=== PATIENT | male | born 1945 | race Caucasian/White ===

== ENCOUNTER 2019-05-10 21:28 | Inpatient (IN) | payer MEDICARE, OTHER ==
[~2019-05-10] VITALS: Ht 185.4 cm; Wt 80.4 kg
--- NOTE | 2019-05-10 21:34 | PHYS DOC ---
Past History Past Medical History: Arthritis, Dementia, Hypertension Past Medical History Hx. Narcolepsy Past Surgical History: Knee Replacement Past Surgical History Lt knee - replacement Adult General Chief Complaint Chief Complaint: ".. . I don't know.... I just so weak... and this Rt knee... it hurts... so bad.. I can't get around... just so weak everywhere.. [facility]... they say.. .".. " My Lt knee hurts too... but I had surgery ... on it..."... " What the fuck... a person to do... 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 for my father office... I had to show. ..him how to get it in the office... He's 5 years.. younger... by one day... where in the fuck am I ..." HPI HPI Patient is a 73 year old male who presents with above hx and complaints of generalized weakness with right lower ext. and knee pain . Patient denies any injury. Patient has history of chronic bilateral knee pain with previous knee replacement on left. Patient complains of generalized weakness to the point he is unable to ambulate. Patient does report some shortness of breath. Patient is somewhat poor historian. Periodic episodes of confusion. Patient normally follows at [facility]. Pt. was diverted to [place] because [facility] was not accepting patients. . We'll attempt to get records from [facility]. Pt. give s Hx. of HTN, Narcolepsy. Pt. lives by himself. Reportedly per paramedics his living conditions are deplorable. Pt. normally walks with walker, but currently states he had been to weak all day walk .. Unable to get up and get anything to eat or drink since the AM. Pt. advised he has not taken his normal meds since he has not be able to followup at [facility]. Pt. states he gets all of his care at [facility]. Pt. 's power of securities attorney is brother Hesham Davis- [phone]. Pt. states he does have a friend locally Manish Sterling that checks on him occasionally. Pt. states he did get a flu vaccination this season. No recent travel out side of [place] area. No specific ill contacts. Review of Systems Review of Systems Constitutional: Denies fever or chills [] Eyes: Denies change in visual acuity, redness, or eye pain [] HENT: Denies nasal congestion or sore throat [] Respiratory: Reports of some shortness of breath [] Cardiovascular: No additional information not addressed in HPI [] GI: Denies abdominal pain, nausea, vomiting, bloody stools or diarrhea [] : Denies dysuria or hematuria [] Musculoskeletal: Complaints of Rt knee joint pain and Lt knee pain. Pt. has complaints of generalize muscle weakness. Integument: Denies rash or skin lesions [] Neurologic: Denies headache, focal weakness or sensory changes . Complaints of generalized weakness. Endocrine: Denies polyuria or polydipsia [] All other systems were reviewed and found to be within normal limits, except as documented in this note. Family History Family History Family history noncontributory Current Medications Current Medications See nursing for home medications Allergies Allergies No known drug allergies Physical Exam Physical Exam Constitutional: Moderate acute distress, ill in appearance. [] HENT: Normocephalic, atraumatic, bilateral external ears normal, oropharynx dry, no oral exudates, nose normal. Luna- scraggly Eyes: PERRLA, EOMI, conjunctiva normal, no discharge. [] Neck: Normal range of motion, no tenderness, supple, no stridor. [] Cardiovascular: Tachycardia cardia Heart rate regular rhythm, aortic murmur , PMI to Lt. ] Lungs & Thorax: Bilateral breath sounds equal at apex with scattered wheezes auscultation []. Crackles Lt lung base. Clavicle on Lt. appears to be deformed. ? old fx. Abdomen: Bowel sounds normal, soft, no tenderness, no masses, no pulsatile masses. [] Pt. incontinent of stool and urine. Had caked on stool - that appeared from multiple episodes / days. Skin: Warm, dry, no erythema, no rash. Poor turgor. Multiple contusions and abrasions in different stages of healing. Decub sacral. Back: No tenderness, no CVA tenderness. [] Extremities: Right knee tenderness, no cyanosis, no clubbing, moves ext. on request, Arthritic changes. Left knee scar. Can do straight leg lift both legs. Unable to hold legs extended more than a few seconds. Pt. unable to stand because of weakness and Rt. leg pain. Does have some edema and effusion in right knee. Neurologic: Alert and oriented X 2, moves extremities on request, has distal sensory function, no gross focal deficits noted. []Obvious memory issues and at times confused. Rt hand dominate. Psychologic: Affect anxious, judgement some obvious memory changes, episodic moments of confusion, mood varies, at times very talkative. . 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 [] EKG EKG My interpretation EKG shows a sinus tachycardia heart 9 bpm. Does have a left axis deviation and a sixth block. No findings acute STEMI with contralateral changes.[] Radiology/Procedures Radiology/Procedures [address] [address] IMAGING REPORT Signed PATIENT: VERA DAVIS ACCOUNT: [id number] : 1945 LOCATION: ER AGE: 73 SEX: M EXAM STATUS: REG ER ORD. PHYSICIAN: LEANDRA PONCE MD REASON: Short of air, weakness, heart murmur PROCEDURE: PORTABLE CHEST 1V PORTABLE CHEST 1V INDICATION: Dyspnea. COMPARISON STUDY: 01/28/2005. FINDINGS: Lungs: Asymmetric elevation of the left hemidiaphragm. No pulmonary mass or consolidation. The tracheobronchial tree and hilar structures are normal. Pleura: No pleural effusion or pneumothorax. Heart and Mediastinum: The cardiomediastinal silhouette is normal. Atherosclerotic thoracic aorta. IMPRESSION: No consolidation. Electronically signed by: Cade Ferrer MD (05/10/2019 11:25 PM) [id number] DICTATED AND SIGNED BY: CADE FERRER MD DATE: 05/10/19 9548 CC: LEANDRA PONCE MD; PCP,NO ~ [address] [address] IMAGING REPORT Signed PATIENT: VERA DAVIS ACCOUNT: [id number] : 1945 LOCATION: ER AGE: 73 SEX: M EXAM STATUS: REG ER ORD. PHYSICIAN: LEANDRA PONCE MD REASON: Severe right knee pain today with weakness, diffiuclty ambulating PROCEDURE: KNEE RIGHT 4V KNEE RIGHT 4V DATE: 05/10/2019 9:51 PM INDICATION: Severe knee pain COMPARISON: None. FINDINGS/ IMPRESSION: No acute fracture. Severe tricompartmental degenerative changes. Small knee joint effusion. Atherosclerotic vascular calcifications. Electronically signed by: Cade Ferrer MD (05/10/2019 11:14 PM) [id number] DICTATED AND SIGNED BY: CADE FERRER MD DATE: 05/10/191 CC: LEANDRA PONCE MD; PCP,NO ~ [[address] [address] IMAGING REPORT Signed PATIENT: VERA DAVIS ACCOUNT: [id number] : 1945 LOCATION: ER AGE: 73 SEX: M EXAM STATUS: REG ER ORD. PHYSICIAN: LEANDRA PONCE MD REASON: Bilateral upper leg and hip pain today, difficulty ambulating PROCEDURE: FEMUR BILAT FEMUR BILAT DATE: 05/10/2019 10:06 PM INDICATION: Bilateral upper leg pain COMPARISON: None. FINDINGS/ IMPRESSION: There is no evidence of acute fracture. No joint dislocation is noted. Electronically signed by: Cade Ferrer MD (05/10/2019 11:17 PM) [id number] DICTATED AND SIGNED BY: CADE FERRER MD DATE: 05/10/191 CC: LEANDRA PONCE MD; PCP,NO ~ ][address] [address] IMAGING REPORT Signed PATIENT: VERA DAVIS ACCOUNT: [id number] : 1945 LOCATION: ER AGE: 73 SEX: M EXAM STATUS: REG ER ORD. PHYSICIAN: LEANDRA PONCE MD REASON: Severe left knee pain today with weakness, diffiuclty ambulating PROCEDURE: KNEE LEFT 4V KNEE LEFT 4V DATE: 05/10/2019 10:15 PM INDICATION: Severe knee pain COMPARISON: None. FINDINGS/ IMPRESSION: Total knee arthroplasty. Surgical hardware is intact. No periprosthetic lucency. No acute fracture. Electronically signed by: Cade Ferrer MD (05/10/2019 11:13 PM) [id number] DICTATED AND SIGNED BY: CADE FERRER MD DATE: 05/10/19 2313 CC: LEANDRA PONCE MD; PCP,NO ~ Course & Med Decision Making Course & Med Decision Making Pertinent Labs and Imaging studies reviewed. (See chart for details) Admit to Dr. Alicia with Cardiology consult. Social Service consult. Pt. unable to urinate prior to admit. Pt. declined [facility]. Impression: 1. Weakness 2. Rt. Knee Pain 3. Dyspnea 4. Dehydration 5. Elevated D-dimer 0.98 6. Leukocytosis 12.2 7. Mild Elevation Lactic Acid 2.3 8. Dementia (Brother Hesham Davis -power of securities attorney- [place] reportedly has number in his phone. ) 9. Mild elevation CK 338 10. Hx. Narcolepsy 11.Hx. HTN 12.Contusions 13.Sacral Decub. 14.High risk for re-admit, Social Issues [] Dragon Disclaimer Dragon Disclaimer This electronic medical record was generated, in whole or in part, using a voice recognition dictation system. Departure Departure: Disposition: 01 HOME/RESIDENCE PRIOR TO ADM Condition: STABLE Dragon Disclaimer This chart was dictated in whole or in part using Voice Recognition software in a busy, high-work load, and often noisy Emergency Department environment. It may contain unintended and wholly unrecognized errors or omissions. LEANDRA PONCE MD May 10, 2019 21:34
[2019-05-10] MEDS ORDERED: IV RINGERS SOLUTION,LACTATED 1,000 ML IV SCH (21:51)
[2019-05-10] MEDS ORDERED: ACETAMINOPHEN 500 MG TABLET PO ONE (22:15)
[2019-05-10] MEDS ORDERED: MORPHINE SULFATE 10 MG/ML SYRINGE. SQ ONE (22:30)
[2019-05-10 22:41] LABS: BASO # 0.1 x10^3/uL (0.0-0.2); BASO % 1 % (0-3); EOS % 0 % (0-3); HEMATOCRIT 49.2 % (39.0-53.0); HEMOGLOBIN 16.3 g/dL (13.0-17.5); LYMPH % 9 % (24-48); MEAN CORPUSCULAR HEMOGLOBIN 32 pg (25-35); MEAN CORPUSCULAR HGB CONC 33 g/dL (31-37); MEAN CORPUSCULAR VOLUME 97 fL (79-100); MONO # 1.1 x10^3/uL (0.0-1.1); MONO % 9 % (0-9); NEUT % 82 % (31-73); PLATELET COUNT 318 x10^3/uL (140-400); RED CELL DISTRIBUTION WIDTH 13.7 % (11.5-14.5); WHITE BLOOD COUNT 12.2 x10^3/uL (4.0-11.0)
[2019-05-10 22:50] LABS: CREATININE 1.2 mg/dL (0.7-1.3); GFR 59.2; POTASSIUM 4.9 mmol/L (3.5-5.1)
[2019-05-10 23:03] LABS: ALBUMIN 4.3 g/dL (3.4-5.0); DIRECT BILIRUBIN 0.2 mg/dL (0.0-0.2); TOTAL PROTEIN 7.4 g/dL (6.4-8.2)
--- NOTE | 2019-05-10 23:16 | RAD ---
KNEE LEFT 4V DATE: 05/10/2019 10:15 PM INDICATION: Severe knee pain COMPARISON: None. FINDINGS/ IMPRESSION: Total knee arthroplasty. Surgical hardware is intact. No periprosthetic lucency. No acute fracture. Electronically signed by: Derek Ferrer MD (05/10/2019 11:13 PM) [id number]
--- NOTE | 2019-05-10 23:17 | RAD ---
KNEE RIGHT 4V DATE: 05/10/2019 9:51 PM INDICATION: Severe knee pain COMPARISON: None. FINDINGS/ IMPRESSION: No acute fracture. Severe tricompartmental degenerative changes. Small knee joint effusion. Atherosclerotic vascular calcifications. Electronically signed by: Derek Ferrer MD (05/10/2019 11:14 PM) [id number]
--- NOTE | 2019-05-10 23:20 | RAD ---
FEMUR BILAT DATE: 05/10/2019 10:06 PM INDICATION: Bilateral upper leg pain COMPARISON: None. FINDINGS/ IMPRESSION: There is no evidence of acute fracture. No joint dislocation is noted. Electronically signed by: Derek Ferrer MD (05/10/2019 11:17 PM) [id number]
--- NOTE | 2019-05-10 23:27 | RAD ---
PORTABLE CHEST 1V INDICATION: Dyspnea. COMPARISON STUDY: 01/28/2005. FINDINGS: Lungs: Asymmetric elevation of the left hemidiaphragm. No pulmonary mass or consolidation. The tracheobronchial tree and hilar structures are normal. Pleura: No pleural effusion or pneumothorax. Heart and Mediastinum: The cardiomediastinal silhouette is normal. Atherosclerotic thoracic aorta. IMPRESSION: No consolidation. Electronically signed by: Derek Ferrer MD (05/10/2019 11:25 PM) [id number]
[2019-05-10 23:33] LABS: INFLUENZA A PATIENT NEGATIVE (NEGATIVE); INFLUENZA B PATIENT NEGATIVE (NEGATIVE)
[2019-05-11] VITALS (7 sets, daily range): BP systolic 110–161; BP diastolic 53–88
[2019-05-11] MEDS ORDERED: ACETAMINOPHEN 325 MG TABLET PO PRN
[2019-05-11] MEDS ORDERED: ONDANSETRON PF 4 MG/2 ML VIAL. IVP PRN
[2019-05-11] MEDS ORDERED: IV RINGERS SOLUTION,LACTATED 1,000 ML IV ONE
[2019-05-11] MEDS ORDERED: ENOXAPARIN ** NOTE DOSE ** SYRINGE SQ ONE
[2019-05-11] MEDS ORDERED: IV NORMAL SALINE 50ML 50 ML ONE (00:50)
[2019-05-11] MEDS ORDERED: cefTRIAXone SODIUM 1 GM VIAL ONE (00:51)
[2019-05-11] MEDS: IV RINGERS SOLUTION,LACTATED 1,000 ML IV SCH ×4 (01:30→19:50)
[2019-05-11] MEDS ORDERED: IPRATRPIUM/ALBUTEROL 0.5/2.5MG 3 ML NEBU. ONE (05:17)
[2019-05-11] MEDS: IPRATRPIUM/ALBUTEROL 0.5/2.5MG 3 ML NEBU. NEB SCH ×4 (05:20→20:38)
[2019-05-11 06:16] LABS: CALCIUM 8.8 mg/dL (8.5-10.1); CREATININE 1.1 mg/dL (0.7-1.3); GFR 65.4; POTASSIUM 3.7 mmol/L (3.5-5.1)
[2019-05-11 06:17] LABS: BASO # 0.1 x10^3/uL (0.0-0.2); BASO % 1 % (0-3); EOS # 0.1 x10^3/uL (0.0-0.7); EOS % 1 % (0-3); HEMATOCRIT 41.5 % (39.0-53.0); HEMOGLOBIN 14.1 g/dL (13.0-17.5); LYMPH # 1.2 x10^3/uL (1.0-4.8); LYMPH % 12 % (24-48); MEAN CORPUSCULAR HEMOGLOBIN 33 pg (25-35); MEAN CORPUSCULAR HGB CONC 34 g/dL (31-37); MEAN CORPUSCULAR VOLUME 96 fL (79-100); MONO # 1.2 x10^3/uL (0.0-1.1); MONO % 12 % (0-9); NEUT # 7.5 x10^3uL (1.8-7.7); NEUT % 75 % (31-73); PLATELET COUNT 276 x10^3/uL (140-400); RED BLOOD COUNT 4.33 x10^6/uL (4.30-5.70); RED CELL DISTRIBUTION WIDTH 13.4 % (11.5-14.5); WHITE BLOOD COUNT 10.1 x10^3/uL (4.0-11.0)
--- NOTE | 2019-05-11 07:47 | PDOC2 ---
CARDIAC CONSULT DATE OF CONSULT Date Of Consult DATE: 05/11/19 TIME: 07:44 REASON FOR CONSULT Reason for Consult Weakness, dyspnea, murmur REFERRING PHYSICIAN Referring Physician Dr. Berry SOURCE Source: Chart review, Patient HPI History of Present Illness This is a 73 yo male who presented with weakness and right knee pain. This morning, cannot recall what brought him to the hospital. Thinks he came in for some test. C/o all over body pain and migraine. No chest pain, shortness of breath, dizziness, diaphoresis, or LE edema. No recent illness/fevers. Patient lives at home alone and has extensively poor living conditions at home per EMS. Normally receives care at the [facility]. No h/o CHF or knowledge of prior murmur. Does not think he has had an echo previously. PAST MEDICAL HISTORY Cardiovascular: HTN, hyperipidemia Psych: Anxiety, Depression PAST SURGICAL HISTORY Past Surgical History: Total knee replacement (left ) FAMILY HISTORY Family History: Other (no pertinent history) SOCIAL HISTORY Smoke: No ALCOHOL: none Drugs: None Lives: Alone CURRENT MEDICATIONS Current Medications Current Medications Lactated Ringer's 1,000 ml @ 100 mls/hr Q10H IV Last administered on 05/10/19at 23:00; Start 05/10/19 at 21:51; Stop 05/11/19 at 07:50 Acetaminophen (Tylenol) 1,000 mg 1X ONCE PO Last administered on 05/10/19at 23:56; Start 05/10/19 at 22:15; Stop 05/10/19 at 22:25; Status DC Morphine Sulfate (Morphine 10mg Syringe) 10 mg 1X ONCE SQ ; Start 05/10/19 at 22:30; Stop 05/10/19 at 22:31; Status DC Lactated Ringer's 1,000 ml @ 1,000 mls/hr 1X ONCE IV Last administered on 05/11/19at 00:00; Start 05/11/19 at 00:00; Stop 05/11/19 at 00:59; Status DC Enoxaparin Sodium (Lovenox 80mg Syringe) 80 mg 1X ONCE SQ Last administered on 05/11/19at 00:55; Start 05/11/19 at 00:00; Stop 05/11/19 at 00:01; Status DC Ceftriaxone Sodium 1 gm/ Sodium Chloride 50 ml @ 100 mls/hr 1X ONCE IV ; Start 05/11/19 at 00:00; Stop 05/11/19 at 00:29; Status DC Ondansetron HCl (Zofran) 4 mg PRN Q4HRS PRN IVP NAUSEA/VOMITING; Start 05/11/19 at 00:00; Stop 05/11/19 at 23:59 Acetaminophen (Tylenol) 650 mg PRN Q4HRS PRN PO FEVER; Start 05/11/19 at 00:00; Stop 05/11/19 at 23:59 Albuterol/ Ipratropium (Duoneb) 3 ml RTQID NEB Last administered on 05/11/19at 05:20; Start 05/11/19 at 08:00; Stop 05/12/19 at 07:59 Enoxaparin Sodium (Lovenox 80mg Syringe) 80 mg Q12H SQ ; Start 05/11/19 at 12:00 Lactated Ringer's 1,000 ml @ 200 mls/hr Q5H IV Last administered on 05/11/19at 01:30; Start 05/11/19 at 00:30 Aspirin (Children'S Aspirin) 81 mg DAILYWBKFT PO ; Start 05/11/19 at 08:00 Ceftriaxone Sodium 1 gm/ Sodium Chloride 50 ml @ 100 mls/hr 1X ONCE IV Last administered on 05/11/19at 00:56; Start 05/11/19 at 00:30; Stop 05/11/19 at 00:59; Status DC Ceftriaxone Sodium 1 gm/ Sodium Chloride 50 ml @ 100 mls/hr Q24H IV ; Start 05/11/19 at 21:00 Sodium Chloride 50 ml @ As Directed STK-MED ONCE .ROUTE ; Start 05/11/19 at 00:50; Stop 05/11/19 at 00:51; Status DC Ceftriaxone Sodium (Rocephin) 1 gm STK-MED ONCE .ROUTE ; Start 05/11/19 at 00:51; Stop 05/11/19 at 00:51; Status DC Albuterol/ Ipratropium (Duoneb) 3 ml STK-MED ONCE .ROUTE ; Start 05/11/19 at 05:17; Stop 05/11/19 at 05:17; Status DC ALLERGIES Allergies: Coded Allergies: No Known Drug Allergies (Unverified , 05/10/19) ROS Review of Systems 14 point ROS conducted with pertinent positives noted above in hPI PHYSICAL EXAM General: Alert, Other (orient to person and place) HEENT: Atraumatic, Mucous membr. moist/pink Lungs: Clear to auscultation Heart: Regular rate, Other (2/6 systolic murmur ) Abdomen: Soft, No tenderness Extremities: No edema, Normal pulses Skin: No breakdown Neuro: Normal speech, Sensation intact Psych/Mental Status: Mood NL MUSCULOSKELETAL: Osteoarthritic changes both hands VITALS Vital Signs Vital Signs Date Time Temp Pulse Resp B/P (MAP) Pulse Ox O2 Delivery O2 Flow Rate FiO2 05/11/19 06:46 97.7 96 20 133/71 (91) 97 Room Air LABS LABS Laboratory Tests Test 05/10/19 22:15 05/11/19 01:50 05/11/19 05:43 White Blood Count 12.2 x10^3/uL (4.0-11.0) 10.1 x10^3/uL (4.0-11.0) Red Blood Count 5.10 x10^6/uL (4.30-5.70) 4.33 x10^6/uL (4.30-5.70) Hemoglobin 16.3 g/dL (13.0-17.5) 14.1 g/dL (13.0-17.5) Hematocrit 49.2 % (39.0-53.0) 41.5 % (39.0-53.0) Mean Corpuscular Volume 97 fL (79-100) 96 fL (79-100) Mean Corpuscular Hemoglobin 32 pg (25-35) 33 pg (25-35) Mean Corpuscular Hemoglobin Concent 33 g/dL (31-37) 34 g/dL (31-37) Red Cell Distribution Width 13.7 % (11.5-14.5) 13.4 % (11.5-14.5) Platelet Count 318 x10^3/uL (140-400) 276 x10^3/uL (140-400) Neutrophils (%) (Auto) 82 % (31-73) 75 % (31-73) Lymphocytes (%) (Auto) 9 % (24-48) 12 % (24-48) Monocytes (%) (Auto) 9 % (0-9) 12 % (0-9) Eosinophils (%) (Auto) 0 % (0-3) 1 % (0-3) Basophils (%) (Auto) 1 % (0-3) 1 % (0-3) Neutrophils # (Auto) 10.0 x10^3uL (1.8-7.7) 7.5 x10^3uL (1.8-7.7) Lymphocytes # (Auto) 1.0 x10^3/uL (1.0-4.8) 1.2 x10^3/uL (1.0-4.8) Monocytes # (Auto) 1.1 x10^3/uL (0.0-1.1) 1.2 x10^3/uL (0.0-1.1) Eosinophils # (Auto) 0.0 x10^3/uL (0.0-0.7) 0.1 x10^3/uL (0.0-0.7) Basophils # (Auto) 0.1 x10^3/uL (0.0-0.2) 0.1 x10^3/uL (0.0-0.2) Erythrocyte Sedimentation Rate 3 (0-15) Prothrombin Time 10.5 SEC (9.4-11.4) Prothromb Time International Ratio 1.0 (0.9-1.1) Activated Partial Thromboplast Time 27 SEC (23-33) D-Dimer (Carlotta) 0.98 mg/L (0.00-0.50) Sodium Level 142 mmol/L (136-145) 141 mmol/L (136-145) Potassium Level 4.9 mmol/L (3.5-5.1) 3.7 mmol/L (3.5-5.1) Chloride Level 103 mmol/L (98-107) 106 mmol/L (98-107) Carbon Dioxide Level 22 mmol/L (21-32) 24 mmol/L (21-32) Anion Gap 17 (6-14) 11 (6-14) Blood Urea Nitrogen 32 mg/dL (8-26) 32 mg/dL (8-26) Creatinine 1.2 mg/dL (0.7-1.3) 1.1 mg/dL (0.7-1.3) Estimated GFR (Cockcroft-Gault) 59.2 65.4 Glucose Level 109 mg/dL (70-99) 107 mg/dL (70-99) Lactic Acid Level 2.3 mmol/L (0.4-2.0) 1.5 mmol/L (0.4-2.0) Calcium Level 10.0 mg/dL (8.5-10.1) 8.8 mg/dL (8.5-10.1) Magnesium Level 2.0 mg/dL (1.8-2.4) Total Bilirubin 1.0 mg/dL (0.2-1.0) Direct Bilirubin 0.2 mg/dL (0.0-0.2) Aspartate Amino Transf (AST/SGOT) 23 U/L (15-37) Alanine Aminotransferase (ALT/SGPT) 22 U/L (16-63) Alkaline Phosphatase 99 U/L (46-116) Creatine Kinase 338 U/L (39-308) Troponin I Quantitative < 0.017 ng/mL (0-0.055) EL-Tuc-H-Type Natriuretic Peptide 172 pg/mL (0-124) Total Protein 7.4 g/dL (6.4-8.2) Albumin 4.3 g/dL (3.4-5.0) Lipase 72 U/L (73-393) Influenza Type A (Rapid) Negative (NEGATIVE) Influenza Type B (Rapid) Negative (NEGATIVE) ASSESSMENT/PLAN Assessment/Plan 1. Weakness, right knee pain 2. Hypertension; mildly elevated 3. Hyperlipidemia 4. Dyspnea; NT pro BNP mildly elevated, but no clinical evidence of overt HF 5. IBRAHIMA 6. Systolic murmur 7. Self care deficit 8. Encephalopathy vs dementia 9. Substance abuse; UDS positive for methamphetamines Recommendations Lipids Echo to assess LV systolic function, valvular disease Statin Ad lisinopril for BP control Will likely need placement upon discharge Supportive care BRENDA DALTON APRN May 11, 2019 07:47
[2019-05-11] MEDS: ASPIRIN 81 MG TAB.CHEW PO SCH (08:49)
[2019-05-11] MEDS: LACTOBACILLUS RHAMNOSUS GG 1 CAPSULE. PO SCH ×2 (08:49→21:05)
--- NOTE | 2019-05-11 09:26 | RAD ---
Bilateral lower extremity venous duplex study 05/11/2019 Clinical History: Bilateral leg swelling. Technique: Using a combination of real time ultrasound imaging and color-flow and pulse Doppler imaging techniques along with graded compression and augmentation, duplex evaluation of the deep venous system of the both lower extremities was performed. Multiple images were obtained. Findings: There is no sonographic evidence of deep venous thrombosis involving the visualized deep venous structures of either lower extremity. Impression: Negative study. Electronically signed by: Jules Paiz MD (05/11/2019 9:23 AM) [id number]
[2019-05-11] MEDS ORDERED: ATOR20TA58 PO (09:45)
[2019-05-11] MEDS ORDERED: CHOL200078 PO (09:45)
[2019-05-11 11:35] LABS: BARBITURATES NEG (NEG); BENZODIAZEPINES NEG (NEG); CANNABINOIDS NEG (NEG); COCAINE NEG (NEG); METHADONE NEG (NEG); OPIATES NEG (NEG); PHENCYCLIDINE NEG (NEG)
[2019-05-11 11:37] LABS: AMPHETAMINE/METHAMPHETAMINE POS (NEG)
[2019-05-11] MEDS: ENOXAPARIN ** NOTE DOSE ** SYRINGE SQ SCH ×2 (11:44→21:05)
[2019-05-11 12:01] LABS: BILIRUBIN,URINE NEG (NEG); CLARITY,URINE CLEAR; COLOR,URINE AMBER; GLUCOSE,URINE NEG (NEG)
[2019-05-11 12:02] LABS: BACTERIA,URINE FEW /HPF (0-FEW); NITRITE,URINE NEG (NEG); RBC,URINE OCC /HPF (0-2); SQUAMOUS EPITHELIAL CELL,UR FEW /LPF; UROBILINOGEN,URINE 0.2 mg/dL (0.2 mg/dL)
--- NOTE | 2019-05-11 12:17 | CARD ---
MR#: [id number] Date of Study: 05/11/2019 Ordering Physician: BRENDA DALTON, Referring Physician: BRENDA DALTON, Tech: Irina Sanchez PIETRO APPROVED REPORT EXAM: Two-dimensional and M-mode echocardiogram with Doppler and color Doppler. Other Information Quality : Fair Technically limited study due to body habitus. INDICATION Murmur 2D DIMENSIONS RVDd2.6 (2.9-3.5cm)Left Atrium(2D)2.9 (1.6-4.0cm) IVSd0.9 (0.7-1.1cm)Aortic Root(2D)3.7 (2.0-3.7cm) LVDd3.7 (3.9-5.9cm)LVOT Diameter2.3 (1.8-2.4cm) PWd0.8 (0.7-1.1cm)LVDs2.7 (2.5-4.0cm) FS (%) 30.0 %LVEF(%)60.0 (>50%) Aortic Valve AO Peak GR.12.0mmHgLVOT Peak Luis A.8.0cm/s AO Mean GR.8mmHgAVA (VTI)3.50cm2 AI P 1/2 [id number] Tricuspid Valve TR P. [id number] [id number] TR Peak Gr.[id number] LEFT VENTRICLE The left ventricle is normal size. There is normal left ventricular wall thickness. The left ventricu lar systolic function is normal. EF 55%. There is grossly normal wall motion. Not well visalized. Tra nsmitral Doppler flow pattern is Grade I-abnormal relaxation pattern. RIGHT VENTRICLE The right ventricle is normal size. The right ventricular systolic function is normal. ATRIA The left atrium size is normal. The right atrium size is normal. The interatrial septum is intact wit h no evidence for an atrial septal defect or patent foramen ovale as noted on 2-D or Doppler imaging. AORTIC VALVE Not well visualized. Doppler and Color Flow revealed trace to mild aortic regurgitation. There is no significant aortic valvular stenosis. MITRAL VALVE The mitral valve is calcified but opens well. There is no evidence of mitral valve prolapse. There is no mitral valve stenosis. Doppler and Color Flow revealed no mitral valve regurgitation noted. TRICUSPID VALVE Not well visualized. Doppler and Color Flow revealed physiological tricuspid regurgitation. The PA pr essure was estimated at 29 mmHg. There is no tricuspid valve stenosis. PULMONIC VALVE The pulmonic valve is not well visualized. Doppler and Color Flow revealed no pulmonic valvular regur gitation. There is no pulmonic valvular stenosis. GREAT VESSELS The aortic root is normal in size. The ascending aorta is normal in size. The IVC is normal in size a nd collapses >50% with inspiration. PERICARDIAL EFFUSION There is no evidence of significant pericardial effusion. Critical Notification Critical Value: No <Conclusion> The left ventricular systolic function is normal. EF 55%. There is grossly normal wall motion. Not well visalized. Technically very difficult study Signed by : Jalil Lee, Electronically Approved : 05/11/2019 12:17:15
--- NOTE | 2019-05-11 14:36 | PN ---
DATE: SUBJECTIVE: The patient is sitting comfortably in his chair, in no apparent distress. He is definitely more awake, alert, continued to complain of pain in his right knee joint; however, he was able to walk with a walker with standby assist with physical Therapy. PHYSICAL EXAMINATION: GENERAL: When I examined him, he looked well and was clearly in no apparent respiratory distress. No pallor, jaundice, cyanosis or thyromegaly. No jugular venous distention. No limb edema. VITAL SIGNS: His heart rate was 95, blood pressure was 132/66, temperature 97.9, respiratory rate was 20, and oxygen saturation was 96%. HEAD, EYES, EARS, NOSE AND THROAT: Showed he is normocephalic and atraumatic. NECK: Supple. HEART: Showed normal first and second heart sounds. No gallop or murmur. CHEST: Clear to auscultation. No crepitation or rhonchi. ABDOMEN: Distended, soft, nontender. No guarding or rigidity. No organomegaly. All hernial orifice intact. Bowel sounds normal. NEUROLOGIC: He is grossly intact. His intake over the last 24 hours was 1515, no output was recorded. LABORATORY DATA: His lab work this morning showed a serum sodium 141, potassium 3.7, chloride 106, bicarbonate 24, anion gap of 11, BUN 32, creatinine 1.1, estimated GFR was 65 mL per minute. His glucose 107, calcium was 8.8. His white cell count is down to 10,000, hemoglobin 14, hematocrit 41, MCV 96, and platelet count of 276,000 with normal manual differential. ASSESSMENT: In summary, this is a 73-year-old male patient who was admitted with generalized weakness, severe pain in his right knee joint, dehydration, hypertension and osteoarthritis. His D-dimer was high; however, his kidney function is abnormal. His oxygen saturation is actually 96% on room air. I will arrange for him to have a CT angio of the chest to rule out the possibility of pulmonary embolism and meanwhile given his debility and weakness, he probably needs to be in a assisted facility and the patient himself seems to be agreeable and receptive to the idea and our showcase maker is aware of that. ITA MULLINS MD DR: LYNNE/enrique JOB#: [id number] / [id number]
[2019-05-11] MEDS ORDERED: CONTRAST GIVEN MC PRN (14:45)
[2019-05-11] MEDS ORDERED: IOHEXOL 350 MG/ML 100 ML VIAL. IV ONE (14:45)
--- NOTE | 2019-05-11 15:32 | HP ---
ADMIT DATE: HISTORY OF PRESENT ILLNESS: The patient is a 73-year-old male patient who presented to the Emergency Room with a complaint of generalized weakness and pain in his right knee. He apparently denied any injury or fall. He has a history of chronic bilateral knee pain with previous left total knee arthroplasty. He became generally weak to the point he is unable to ambulate. He does report some shortness of breath. The patient is somewhat a poor historian. [facility] He was diverted to [facility] because [facility] was not accepting patients. He apparently lives by himself reportedly but ____ his living conditions were deplorable. He normally walks with a walker, but currently stated he had been too weak to hold it, he was unable to get up and get anything to eat or drink since yesterday morning, has not taken any of his medication. His power of needle polisher is his brother, Hesham Hopper. He stated that he does have a friend locally, his name is Manish ____ that checks on him occasionally; however, the patient denies any travel outside of the [place] area or any specific ill contact. He was evaluated in the Emergency Room and has had a chest x-ray, which showed asymmetric elevation of the left hemidiaphragm with no pulmonary masses or consolidation. The tracheobronchial tree and hilar structures are normal, no pleural effusion or pneumothorax. The cardiomediastinal silhouette is normal, atherosclerotic thoracic aorta. X-ray of the right knee joint showed that the patient has severe tricompartmental degenerative changes, small knee joint effusion, atherosclerotic vascular calcification. He has x-ray of both femurs, which shows no evidence of acute fracture, no joint dislocation is noted and he was admitted with basically generalized weakness, mild leukocytosis. His chemistry was generally unremarkable except perhaps he has dehydration. His D-dimer was slightly elevated at 0.98. Urinalysis was essentially unremarkable. Toxic screen was positive for amphetamine, methamphetamine, but apparently the patient is on Adderall according to him. His influenza A and B were negative. The patient was admitted for rehydration. PAST MEDICAL HISTORY: Significant for hypertension, hyperlipidemia and generalized osteoarthritis. He has also history of anxiety and depression. PAST SURGICAL HISTORY: Significant for left total knee arthroplasty, tonsillectomy and hernia repair. ALLERGIES: He has no known drug allergies. MEDICATIONS: He is currently on following medications: He is on atorvastatin, calcium 20 mg at bedtime and vitamin D 400 International Units twice a day. FAMILY HISTORY: He has 3 brothers and 1 sister, all of them younger. His father , at the age of 90 because of myocardial infarction. Mother also in her 90s. SOCIAL HISTORY: He is , used to have 2 sons. He quit smoking about 12 years ago. He used to smoke half a pack a day, also used to drink alcohol heavily, he quit also. 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 REVIEW OF SYSTEMS: The patient denied any blurring of vision, cataract, glaucoma or macular degeneration. Denied any earache, tinnitus or sensorineural deafness. Denied any nosebleeds, stuffy nose or postnasal drip. Denied any sore throat, sore tongue, toothache, hoarseness of voice or difficulty swallowing. Denied any nausea, vomiting, diarrhea or constipation. Denied any hematemesis, melena or hematochezia. Denied any dysuria, frequency or hematuria. Denied any chest pain, shortness of breath, orthopnea, paroxysmal nocturnal dyspnea. Denied any cough, phlegm or hemoptysis. Denied any dizziness, lightheadedness or vertigo. Did complain of generalized weakness and pain in his right knee joint. PHYSICAL EXAMINATION: GENERAL: On arrival to the Emergency Room, he looked well and was clearly in no apparent respiratory distress, somewhat disheveled, unkempt, but there is no pallor, jaundice, cyanosis or thyromegaly. No jugular venous distention. No limb edema. VITAL SIGNS: His heart rate was 115, blood pressure was 160/109, temperature was 98, respiratory rate was 18 and oxygen saturation was 98%. HEAD, EYES, EARS, NOSE AND THROAT: Normocephalic, atraumatic. NECK: Supple. CARDIAC: Normal first and second heart sounds. No gallop or murmur. CHEST: Clear to auscultation. No crepitation or rhonchi. ABDOMEN: Scaphoid, soft, nontender. NEUROLOGIC: He is awake, alert, responding appropriately. All cranial nerves intact. EXTREMITIES: He moves extremities without difficulty. He has severe pain in his right knee joint. LABORATORY DATA: His lab work on admission showed a white cell count is 12,200, hemoglobin 16, hematocrit 49, MCV 97 and platelet count of 318,000 with normal manual differential. His prothrombin time was 10.5, INR of 1, aPTT was 27. D-dimer was 0.98. Serum sodium 142, potassium 4.9, chloride 103, bicarbonate 22, anion gap of 17, BUN 32, creatinine was 1.2. His estimated GFR was 59 mL per minute. His glucose was 109. Lactic acid was slightly elevated at 2.3, calcium was 10, magnesium was 2. Total bilirubin, AST, ALT, alkaline phosphatase was normal. CK was slightly elevated 338, however beta natriuretic peptide was 172. Total protein was 7.4, albumin was 4.3. Lipase was 72. His prothrombin time was 10.5, INR 1, aPTT was 27. D-dimer was 0.98. Urinalysis showed the urine was amalia clear with a pH of 5.5, specific gravity of 1.030. There was trace of protein. The urine was negative for glucose. There is large amount of ketones, negative for blood, nitrite, bilirubin small amount. The urine was negative for leukocyte esterase, occasional rbc's, 1-4 wbc's, very few bacteria. His influenza A and B were negative. His venous Doppler ultrasound showed no sonographic evidence of deep vein thrombosis involving visualized deep venous structures of either lower extremity. X-ray of his right knee showed no acute fracture with severe tricompartmental degenerative changes, small knee joint effusion, atherosclerotic vascular calcification. X-ray of both femurs and left knee showed no fracture. Has a total knee arthroplasty, surgical hardware is intact. No periprosthetic lucency, no acute fracture. ASSESSMENT AND PLAN: The patient was admitted for rehydration. He was continued on IV fluid, started on IV antibiotic empirically as well as Lovenox 80 mg subcutaneous twice a day, aspirin 81 mg once a day together with albuterol and Atrovent. I will obviously wait for his creatinine to improve before considering CT angio of the chest. ITA MULLINS MD DR: LYNNE/enrique JOB#: [id number] / [id number]
--- NOTE | 2019-05-11 15:48 | RAD ---
CT angiography of the chest 05/11/2019 1:56 PM Indication: Shortness of breath Technique: Multiple contiguous axial images were obtained through the chest after administration of intravenous iodinated contrast. Coronal, sagittal, and 3-D MIP reformations were created. Comparison: None Findings: There is no filling defect within central pulmonary arteries or evidence of acute pulmonary embolism. The heart is mildly enlarged. No pericardial effusion is seen. Coronary calcification noted. No pathologically enlarged mediastinal adenopathy is appreciated. Fluid is seen within the esophagus which is nonspecific and can represent reflux. There is a relative lack of contrast opacification of the right common carotid artery. Vessel occlusion or stenosis is not excluded. Recommend CT angiography or ultrasound for further evaluation. Limited visualization of the upper abdomen is unremarkable. No pathologically enlarged mediastinal lymph nodes are seen the thoracic aorta is minimally ectatic but otherwise normal in course and contour. Elevation of left hemidiaphragm noted. There is no pneumothorax or pleural effusion. Mild intralobular septal thickening is seen which could mild hypervolemia early edema.. No acute infiltrates are seen. Limited visualization of the upper abdomen demonstrates no acute abnormality. No acute osseous abnormalities are appreciated. Impression: 1. No evidence of acute pulmonary embolism 2. Apparent decreased contrast opacification of the right common carotid artery. Conclusion not excluded. Recommend evaluation with ultrasound or CT angiography. 3. Fluid in the esophagus. This can represent reflux. 4. Mild intralobular septal thickening. Mild hypervolemia or interstitial edema is possible CT DOSING PQRS STATEMENT: One or more of the following individualized dose reduction techniques were utilized for this examination: 1. Automated exposure control 2. Adjustment of the mA and/or kV according to patient size 3. Use of iterative reconstruction technique Electronically signed by: Emile Amaya MD (05/11/2019 3:45 PM) [id number]
--- NOTE | 2019-05-11 16:16 | EKG ---
[address] [address] Test Date: 2019-05-10 Test Time: 22:04:09 Pat Name: VERA DAVIS Department: Room: Gender: M [employer]: : [id number] Requested By: LEANDRA PONCE Order Number: [id number] Reading MD: Measurements Intervals [place] Rate: 109 P: 62 OR: 166 QRS: -41 QRSD: 86 T: 68 QT: 340 QTc: 459 Interpretive Statements SINUS TACHYCARDIA ABNORMAL LEFT AXIS DEVIATION LEFT ANTERIOR FASCICULAR BLOCK QRS(T) CONTOUR ABNORMALITY CONSIDER INFERIOR INFARCT ABNORMAL ECG RI6.01 No previous ECG available for comparison
[2019-05-11] MEDS ORDERED: ATORVASTATIN CALCIUM 20 MG TABLET PO SCH (21:00)
[2019-05-12 06:17] VITALS: BP 165/78
[2019-05-12] MEDS: IV RINGERS SOLUTION,LACTATED 1,000 ML IV SCH (06:41)
[2019-05-12] MEDS: LACTOBACILLUS RHAMNOSUS GG 1 CAPSULE. PO SCH (07:56)
[2019-05-12] MEDS: ASPIRIN 81 MG TAB.CHEW PO SCH (07:56)
[2019-05-12] MEDS ORDERED: LISINOPRIL 5 MG TABLET. PO SCH (09:00)
[2019-05-12] MEDS ORDERED: CHOLECALCIFEROL (VITAMIN D3) 1,000 UNIT TABLET PO SCH (09:00)
[2019-05-12 11:27] VITALS: BP 163/90
[2019-05-12] MEDS: ENOXAPARIN ** NOTE DOSE ** SYRINGE SQ SCH (12:23)
[2019-05-12 15:42] VITALS: BP 148/68
[2019-05-12] MEDS ORDERED: LISINOPRIL 5 MG TABLET. PO ONE (16:00)
[2019-05-12 16:32] VITALS: BP 148/68
[2019-05-12 16:41] LABS: CALCIUM 8.5 mg/dL (8.5-10.1); CREATININE 1.1 mg/dL (0.7-1.3); GFR 65.4; POTASSIUM 3.9 mmol/L (3.5-5.1)
--- NOTE | 2019-05-12 17:13 | RAD ---
Examination: DOPPLER CAROTID BILAT History: Diminished flow on CTA of the chest involving the right carotid artery Comparison study: CTA of the chest 05/11/2019. Findings: The common, internal and external carotid arteries were examined by grayscale, color and spectral Doppler ultrasound. Flow in both vertebral arteries was antegrade and normal. The following are the velocities and ratios in the carotid arteries on both sides: RIGHT ICA PV: 12 cm/sec proximally, 24 cm/s mid, 21 cm/s distally RIGHT CCA PV: 37 cm/sec proximally, 72 cm/s mid, 114 cm/s distally RIGHT ICA ED: 11 cm/sec RIGHT IC/CCPV: 0.33 RIGHT VERTEBRAL: antegrade flow LEFT ICA PV: 108 cm/sec proximally, 97 cm/s mid, 108 cm/s distally LEFT CCA PV: 121 cm/sec proximally, 84 cm/s mid, 87 cm/s second distally LEFT ICA ED: 34 cm/sec LEFT IC/CCPV: 1.28 LEFT VERTEBRAL: antegrade flow Large quantity of noncalcified plaque is present within the right common carotid artery, right carotid bulb and right internal carotid artery more distally and is nearly completely occlusive. Notably diminished flow is evident with monophasic waveform. Plaque is also noted to a lesser degree the proximal right common carotid artery. No left common or internal carotid artery hemodynamically stenosis identified although partially calcific plaque is present involving the mid left internal carotid artery. Calcific plaque is noted within the right and left external carotid arteries. 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 Monophasic waveform at notably diminished flow in the right internal carotid artery are evident. No significant left sided hemodynamic stenosis. Results reported to the patient's nurse Adele on 05/12/2019 at 5:10 PM. PQRS Compliance Statement - Stenosis calculations for CT, MR and conventional angiography are based upon measurement of the distal ICA diameter in accordance with the NASCET methodology. Stenosis calculations for carotid ultrasound studies are derived from validated velocity criteria which are known to correlate with the NASCET methodology. Electronically signed by: Julito Funez MD (05/12/2019 5:11 PM) [id number]
--- NOTE | 2019-05-12 18:55 | PN ---
DATE: 05/12/2019 SUBJECTIVE: The patient is resting, slightly propped up in bed, in no apparent distress. He is feeling much better, had a shower and has been working with Physical Therapy. His pain in his right knee is much less and generally doing much better. OBJECTIVE: GENERAL: When I saw him this afternoon, he looked well. No pallor, jaundice, cyanosis or thyromegaly. No jugular venous distension. No limb edema. VITAL SIGNS: His heart rate was 90, blood pressure was 163/90, temperature was 98.3, respiratory rate 20, and oxygen saturation was 99% on room air. HEAD, EYES, EARS, NOSE AND THROAT: Showed normocephalic, atraumatic. NECK: Supple. HEART: Showed normal first and second heart sounds. No gallop or murmur. CHEST: Clear to auscultation. No crepitation or rhonchi. ABDOMEN: Distended, soft, nontender. No guarding or rigidity. No organomegaly. All hernial orifices intact. Bowel sounds normal. NEUROLOGIC: He was awake, alert, responding appropriately. All cranial nerves intact. He moves extremities without difficulty. His intake was 1515, no output was recorded. LABORATORY DATA: Showed a white cell count of 10,000, hemoglobin 14, hematocrit 41, MCV 96, and platelet count of 276,000 with normal manual differential. His chemistry showed a serum sodium of 141, potassium 3.7, chloride 106, bicarbonate 24, anion gap of 11, BUN 32, creatinine 1.1, estimated GFR was 65 mL per minute. His glucose 107, calcium was 8.8, lactic acid was down to 1.5. TSH was normal. Influenza A and B were negative and urinalysis was essentially unremarkable and toxic screen was negative except for amphetamine. Amphetamine, the patient is on Adderall. His blood cultures so far negative. ASSESSMENT: 1. Generalized weakness. 2. Severe pain in his right knee joint, improving. 3. Dehydration, much improved. 4. Hypertension. 5. Osteoarthritis. 6. D-dimer was elevated; however, his CT angio showed no evidence of any pulmonary emboli. The CT scan showed that there is decreased opacification. Contrast was ____ in the right common carotid artery. Conclusion is not excluded. Recommend evaluation with ultrasound or CT angiogram, fluid in the esophagus. This can represent reflux, mild interlobular septal thickening, mild hypervolemia versus interstitial edema as possible. PLAN: To continue with IV Rocephin. Continue with all other medication. I will discontinue his Lovenox and increase his lisinopril to 10 mg and I will also order right carotid Doppler and hopefully [facility] to a [facility] facility. ITA MULLINS MD DR: LYNNE/enrique JOB#: [id number] / [id number]
[2019-05-13] MEDS ORDERED: LISINOPRIL 10 MG TABLET PO SCH (09:00)
[2019-05-13] MEDS ORDERED: ENOXAPARIN 40 MG/0.4 ML SYRINGE. SQ SCH (12:00)
== END 2019-05-12 18:55 | disposition short-term general hospital (02) | DRG 682 ==
LOC: ER 21:28 → 1 SOUTH 23:50
PROVIDERS: ADMIT Internal Medicine; ATTEND Internal Medicine
DX: N17.9 Acute kidney failure, unspecified (principal); G93.41 Metabolic encephalopathy; F41.9 Anxiety disorder, unspecified; F32.9 Major depressive disorder, single episode, unspecified; G89.29 Other chronic pain; I10 Essential (primary) hypertension; F03.90 Unspecified dementia, unspecified severity, without behavioral disturbance, psychotic disturbance, mood disturbance, and anxiety; Z96.652 Presence of left artificial knee joint; E86.0 Dehydration; D72.829 Elevated white blood cell count, unspecified; L89.159 Pressure ulcer of sacral region, unspecified stage; E78.5 Hyperlipidemia, unspecified; M15.9 Polyosteoarthritis, unspecified; F17.210 Nicotine dependence, cigarettes, uncomplicated; F15.10 Other stimulant abuse, uncomplicated; G47.419 Narcolepsy without cataplexy; K21.9 Gastro-esophageal reflux disease without esophagitis; G43.909 Migraine, unspecified, not intractable, without status migrainosus; Z82.49 Family history of ischemic heart disease and other diseases of the circulatory system; Z79.82 Long term (current) use of aspirin
CPT/HCPCS: 36415; 71045; 71275; 73564; 80048; 80076; 80307; 81001; 82550; 83605; 83690; 83735; 83880; 84443; 84484; 85025; 85379; 85610; 85651; 85730; 87040; 87804; 93005; 93306; 93880; 93970; 94640; J0696; J1650; J7120; Q9967; 97110; 97116; 97535

== ENCOUNTER 2019-06-14 12:21 | Inpatient (IN) | payer MEDICARE, OTHER ==
[2019-06-14] VITALS (10 sets, daily range): BP systolic 65–107; BP diastolic 38–64
[~2019-06-14] VITALS: Ht 185.4 cm; Wt 73.0 kg
[~2019-06-14 12:21] MED LIST: ATOR20TA58 PO; CHOL200078 PO
[2019-06-14] MEDS ORDERED: ONDANSETRON PF 4 MG/2 ML VIAL. IVP ONE (12:30)
[2019-06-14] MEDS ORDERED: IV NORMAL SALINE 1,000ML 1,000 ML IV ONE ×3 (12:30→17:00)
[2019-06-14] MEDS ORDERED: IOHEXOL 350 MG/ML 100 ML VIAL. IV ONE (12:45)
[2019-06-14] MEDS ORDERED: CONTRAST GIVEN MC PRN (12:45)
[2019-06-14 12:48] LABS: BASO # 0.1 x10^3/uL (0.0-0.2); BASO % 1 % (0-3); EOS # 0.2 x10^3/uL (0.0-0.7); EOS % 2 % (0-3); HEMOGLOBIN 15.9 g/dL (13.0-17.5); LYMPH % 16 % (24-48); MEAN CORPUSCULAR HEMOGLOBIN 32 pg (25-35); MEAN CORPUSCULAR HGB CONC 33 g/dL (31-37); MEAN CORPUSCULAR VOLUME 97 fL (79-100); MONO # 1.2 x10^3/uL (0.0-1.1); MONO % 10 % (0-9); NEUT # 9.3 x10^3uL (1.8-7.7); NEUT % 73 % (31-73); PLATELET COUNT 245 x10^3/uL (140-400); RED BLOOD COUNT 4.94 x10^6/uL (4.30-5.70); RED CELL DISTRIBUTION WIDTH 13.7 % (11.5-14.5); WHITE BLOOD COUNT 12.7 x10^3/uL (4.0-11.0)
--- NOTE | 2019-06-14 12:49 | PHYS DOC ---
Past History Past Medical History: Arthritis, Dementia, Hypertension Additional Past Medical Histor: heart murmur,narcolepsy Past Medical History Limited secondary to dementia Past Surgical History: Knee Replacement Additional Past Surgical Histo: left knee, vasectomy, hernia repair Past Surgical History Limited secondary to dementia Smoking: Quit Greater Than 1 Year Alcohol Use: None Drug Use: None Social History Limited secondary to dementia General Adult EDM: Chief Complaint: ALTERED MENTAL STATUS HPI: HPI: 73-year-old male presents via EMS from shelter with report of syncopal episode while patient was up in the shower. Nursing staff was present and able to assist patient down to wheelchair prior to him passing out. Denies trauma. Denies fever or chills. Patient currently reports some nausea. It was noted patient with significant episode of diarrhea upon presentation to the ER. It is unclear if patient has been having similar symptoms of nausea/vomiting/diarrhea prior to presentation. EMS reports initially were called to shelter with report that patient had also experienced some "labored breathing ". Patient currently denying any shortness of air. Denies chest pain. EMS reports patient's initial blood pressure was low down to 70s/40s. History of present illness limited secondary to dementia. Review of Systems: Review of Systems: Constitutional: Denies fever or chills; reports weakness Respiratory: Reports "labored breathing " Cardiovascular: Denies chest pain and syncope GI: Reports nausea and diarrhea Neurologic: Reports headache and syncopal episode Review of systems limited secondary to dementia Heart Score: HEART Score for Chest Pain: HEART Score for Chest Pain Response (Comments) Value History Slighlty/Non-Suspicious 0 ECG Normal 0 Age > 65 2 Risk Factors 1 or 2 Risk Factors 1 Troponin < Normal Limit 0 Total 3 Risk Factors: Risk Factors: DM, Current or recent (<one month) smoker, HTN, HLP, family history of CAD, obesity. Risk Scores: Score 0 - 3: 2.5% MACE over next 6 weeks - Discharge Home Score 4 - 6: 20.3% MACE over next 6 weeks - Admit for Clinical Observation Score 7 - 10: 72.7% MACE over next 6 weeks - Early Invasive Strategies Current Medications: Current Meds: Current Medications Medications (Trade) Dose Ordered Sig/Nina Start Time Stop Time Status Last Admin Dose Admin Iohexol (Omnipaque 350 Mg/ml) 100 ml 1X ONCE 06/14/19 12:45 06/14/19 12:46 UNV Ondansetron HCl (Zofran) 4 mg 1X ONCE 06/14/19 12:30 06/14/19 12:32 DC Sodium Chloride 1,000 ml @ 1,000 mls/hr 1X ONCE 06/14/19 12:30 06/14/19 13:29 Allergies: Allergies: Allergies Coded Allergies Type Severity Reaction Last Updated Verified No Known Drug Allergies 05/10/19 No Physical Exam: PE: Constitutional: Well developed elderly male, well nourished, no acute distress, non-toxic appearance HENT: Normocephalic, atraumatic Eyes: PERRL, EOMI, conjunctiva normal, no discharge, no nystagmus Neck: Normal range of motion, no tenderness, supple, no meningeal signs Cardiovascular: Heart rate normal, regular rhythm Lungs & Thorax: Bilateral breath sounds clear to auscultation, no wheezing Abdomen: Soft, no tenderness, no guarding/rebound tenderness/distention Skin: Warm, dry, erythema perineal area consistent with pre-ulceration, no rash Extremities: No tenderness, ROM intact, no edema Neurologic: Alert and oriented X 2, normal motor function, normal sensory function, no focal deficits noted Psychologic: Affect normal, judgment abnormal EKG: EKG: @1234 NSR at 84bpm, NO ST elevation, QRS 82ms, QT/QTc 360/429ms Radiology/Procedures: Radiology/Procedures: PROCEDURE: CT HEAD AND CERVICAL SPINE WO CT Head W/O Contrast: History: Syncope and altered mental status Comparison: none Axial images were obtained without contrast. There is a dense round mass in the anterior horn of the right lateral ventricle that measures 2.8 cm in diameter and results in right sided hydrocephalus with shift of the septum pellucidum from right to left by 1.5 cm. There is moderate diffuse atrophy. There is no extra-axial fluid collections or gross bleed. There is no focal loss of brown-white matter distinction to suggest acute ischemia, i.e. stroke. Impression: Hyperattenuating 2.8 cm mass anteriorly in the right lateral ventricle resulting in right-sided hydrocephalus. This could be a meningioma, subependymoma or lymphoma or metastasis. End impression CT C-Spine without contrast: Clinical History: Technique: Axial helical images of the cervical spine were obtained without contrast, axial coronal and sagittal reconstruction was performed. Findings: There is no loss of vertebral body stature. There is no prevertebral soft tissue swelling. The vertebral bodies are well aligned. The C1-C2 relationship is normal. The visualized osseous structures appear normal. Evaluation of the central canal is limited without contrast. There is multiple posterior disc bulges resulting in flattening of the thecal sac. There does not appear to be gross flattening of the cervical cord. There is moderate narrowing of multiple neuroforamen. Impression: Marked degenerative changes. No acute findings. Clinical correlation suggested. See CT head without contrast. End impression PQRS Compliance Statement: One or more of the following individualized dose reduction techniques were utilized for this examination: 1. Automated exposure control 2. Adjustment of the mA and/or kV according to patient size 3. Use of iterative reconstruction technique Electronically signed by: Clif Manzo III, MD (06/14/2019 2:23 PM) [id number] PROCEDURE: CT ANGIOGRAPHY CHEST Examination: CT angiography chest HISTORY: History of dyspnea COMPARISON: 05/11/2019. Technique: Axial CT angiographic images were performed with IV contrast. Coronal and sagittal reformats are performed. Exposure: One or more of the following individualized dose reduction techniques were utilized for this examination: 1. Automated exposure control 2. Adjustment of the mA and/or kV according to patient size 3. Use of iterative reconstruction technique FINDINGS: The central airways are patent. The heart size grossly appears unremarkable. Coronary artery calcifications identified. There is no evidence of filling defect identified in the main pulmonary arterial trunk and right and left main pulmonary arteries and the visualized lobar, segmental branches of the pulmonary arteries. Mild elevation of the left hemidiaphragm. Linear airspace opacity identified in the left lung base likely atelectasis or chronic infiltrates similar to prior exam. Linear right lung base atelectasis. The visualized liver, spleen, grossly appears unremarkable. There is a 1.7 cm nodule identified in the left adrenal gland measuring 15 Hounsfield units. Prior moderate degenerative changes thoracic spine IMPRESSION: 1. No evidence of pulmonary embolism. 2. Elevated left hemidiaphragm with linear airspace opacity identified in the left lung base likely chronic infiltrate or atelectasis similar to prior exam. Electronically signed by: Ted Pedraza MD (06/14/2019 2:00 PM) [id number] Course & Med Decision Making: Course & Med Decision Making Pertinent Labs and Imaging studies reviewed. (See chart for details) Patient presents via EMS from shelter with report of syncopal episode and "labored breathing ". Afebrile. EKG stable. Labs obtained and posted to chart. BUN/Creatinine significantly elevated. IVF hydration given. D-dimer elevated. Lactic acid elevated. Cannot fully exclude COVID19 as cause of symptoms. Patient poor historian. COVID19 testing therefore obtained. Rapid influenza and rapid strep negative. CT head/cervical spine without acute process. CTA chest obtained upon patient's arrival to ED due to concern for "labor breathing". CTA performed with IV contrast prior to laboratory data. Had reviewed [employer] with finding of normal GFR from recent laboratory data from April 2019. Patient requiring admission for further evaluation and treatment. Discussed with Dr. Alicia (hospitalist) who is in agreement with admission. COVID-19 CRITERIA: The patient was evaluated during the global COVID-19 pandemic, and that diagnosis was suspected/considered upon their initial presentation. Their evaluation, treatment and testing was consistent with current guidelines for patients who present with complaints or symptoms that may be related to COVID-19. Juli Disclaimer: Dragjane Disclaimer: This electronic medical record was generated, in whole or in part, using a voice recognition dictation system. Departure Departure: Impression: Primary Impression: Syncope Qualified Codes: R55 - Syncope and collapse Additional Impressions: Dementia Qualified Codes: F03.90 - Unspecified dementia without behavioral disturbance Suspected COVID-19 virus infection Acute renal failure Qualified Codes: N17.9 - Acute kidney failure, unspecified Lactic acidosis Hypotension Qualified Codes: I95.9 - Hypotension, unspecified Disposition: 09 ADMITTED INPATIENT Admitting Physician: Jamilah Alicia Condition: GUARDED Referrals: PCP,NO (PCP) COVID-19 Assessment COVID-19 Patient Risks: Age 65 or older: Yes Sign of co-morbidity: Yes Exp to person + for COVID: No (Unclear if any exposure at shelter) Exp to PUI: No Travel from affected area: No Lower respiratory symptoms: Yes (reported "labored breathing") Fever: No Other: Yes ([facility] resident) PPE Use: Full PPE with N95 mask or PAPR: Yes Critical Care Time Critical care time was 30 minutes which includes time at bedside, spent in discussion of patient's care with specialists and/or family members, with interpretation of laboratory and/or radiological studies and is exclusive of procedures. GLORIA COOPER DO Jun 14, 2019 12:49
--- NOTE | 2019-06-14 12:56 | EKG ---
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
[2019-06-14 13:02] LABS: CALCIUM 9.3 mg/dL (8.5-10.1); CREATININE 3.7 mg/dL (0.7-1.3); GFR 16.1; POTASSIUM 5.1 mmol/L (3.5-5.1)
[2019-06-14 13:09] LABS: INFLUENZA A PATIENT NEGATIVE (NEGATIVE); INFLUENZA B PATIENT NEGATIVE (NEGATIVE)
[2019-06-14 13:29] LABS: ALBUMIN 3.5 g/dL (3.4-5.0); ALBUMIN/GLOBULIN RATIO 1.2 (1.0-1.7); MAGNESIUM 2.7 mg/dL (1.8-2.4); TOTAL BILIRUBIN 0.5 mg/dL (0.2-1.0); TOTAL PROTEIN 6.4 g/dL (6.4-8.2)
--- NOTE | 2019-06-14 14:02 | RAD ---
Examination: CT angiography chest HISTORY: History of dyspnea COMPARISON: 05/11/2019. Technique: Axial CT angiographic images were performed with IV contrast. Coronal and sagittal reformats are performed. Exposure: One or more of the following individualized dose reduction techniques were utilized for this examination: 1. Automated exposure control 2. Adjustment of the mA and/or kV according to patient size 3. Use of iterative reconstruction technique FINDINGS: The central airways are patent. The heart size grossly appears unremarkable. Coronary artery calcifications identified. There is no evidence of filling defect identified in the main pulmonary arterial trunk and right and left main pulmonary arteries and the visualized lobar, segmental branches of the pulmonary arteries. Mild elevation of the left hemidiaphragm. Linear airspace opacity identified in the left lung base likely atelectasis or chronic infiltrates similar to prior exam. Linear right lung base atelectasis. The visualized liver, spleen, grossly appears unremarkable. There is a 1.7 cm nodule identified in the left adrenal gland measuring 15 Hounsfield units. Prior moderate degenerative changes thoracic spine IMPRESSION: 1. No evidence of pulmonary embolism. 2. Elevated left hemidiaphragm with linear airspace opacity identified in the left lung base likely chronic infiltrate or atelectasis similar to prior exam. Electronically signed by: Ted Pedraza MD (06/14/2019 2:00 PM) [id number]
--- NOTE | 2019-06-14 14:26 | RAD ---
CT Head W/O Contrast: History: Syncope and altered mental status Comparison: none Axial images were obtained without contrast. There is a dense round mass in the anterior horn of the right lateral ventricle that measures 2.8 cm in diameter and results in right sided hydrocephalus with shift of the septum pellucidum from right to left by 1.5 cm. There is moderate diffuse atrophy. There is no extra-axial fluid collections or gross bleed. There is no focal loss of brown-white matter distinction to suggest acute ischemia, i.e. stroke. Impression: Hyperattenuating 2.8 cm mass anteriorly in the right lateral ventricle resulting in right-sided hydrocephalus. This could be a meningioma, subependymoma or lymphoma or metastasis. End impression CT C-Spine without contrast: Clinical History: Technique: Axial helical images of the cervical spine were obtained without contrast, axial coronal and sagittal reconstruction was performed. Findings: There is no loss of vertebral body stature. There is no prevertebral soft tissue swelling. The vertebral bodies are well aligned. The C1-C2 relationship is normal. The visualized osseous structures appear normal. Evaluation of the central canal is limited without contrast. There is multiple posterior disc bulges resulting in flattening of the thecal sac. There does not appear to be gross flattening of the cervical cord. There is moderate narrowing of multiple neuroforamen. Impression: Marked degenerative changes. No acute findings. Clinical correlation suggested. See CT head without contrast. End impression PQRS Compliance Statement: One or more of the following individualized dose reduction techniques were utilized for this examination: 1. Automated exposure control 2. Adjustment of the mA and/or kV according to patient size 3. Use of iterative reconstruction technique Electronically signed by: Clif Manzo III, MD (06/14/2019 2:23 PM) [id number]
[2019-06-14] MEDS ORDERED: ONDANSETRON PF 4 MG/2 ML VIAL. IVP PRN (15:00)
[2019-06-14 15:37] LABS: BILIRUBIN,URINE NEG (NEG); CLARITY,URINE CLEAR; COLOR,URINE YELLOW; GLUCOSE,URINE 100 mg/dL (NEG)
[2019-06-14 15:38] LABS: NITRITE,URINE NEG (NEG); UROBILINOGEN,URINE 0.2 mg/dL (0.2 mg/dL)
[2019-06-14 15:42] LABS: BARBITURATES NEG (NEG); BENZODIAZEPINES NEG (NEG); CANNABINOIDS NEG (NEG); COCAINE NEG (NEG); METHADONE NEG (NEG); OPIATES NEG (NEG); PHENCYCLIDINE NEG (NEG)
[2019-06-14 15:43] LABS: AMPHETAMINE/METHAMPHETAMINE NEG (NEG)
[2019-06-14 15:48] LABS: BACTERIA,URINE FEW /HPF (0-FEW); RBC,URINE 0 /HPF (0-2); WBC,URINE 0 /HPF (0-4)
[2019-06-14 15:49] LABS: AMORPHOUS SEDIMENT,UR PRESENT /HPF
[2019-06-14 15:51] LABS: HYALINE CASTS, URINE MOD /HPF; SQUAMOUS EPITHELIAL CELL,UR FEW /LPF
[2019-06-14] MEDS ORDERED: ASPI81TA59 PO (16:39)
[2019-06-14] MEDS ORDERED: IBUP400T18 PO (16:39)
[2019-06-14] MEDS ORDERED: LISI40TA PO (16:39)
[2019-06-14] MEDS ORDERED: HYDR12.58 PO (16:39)
[2019-06-14] MEDS ORDERED: LACT1CAP6 PO (16:39)
[2019-06-14] MEDS ORDERED: MECL12.573 PO (16:39)
[2019-06-14] MEDS ORDERED: ACET325T21 PO (16:39)
[2019-06-14] MEDS ORDERED: MAGN400O7 PO (16:40)
[2019-06-14] MEDS ORDERED: METO25TA4 PO (16:40)
[2019-06-14] MEDS ORDERED: MECLIZINE 12.5 MG TABLET. PO PRN (17:00)
[2019-06-14] MEDS ORDERED: MAGNESIUM HYDROXIDE 2,400 MG/30 ML ORAL.SUSP. PO PRN (17:00)
[2019-06-14] MEDS: ACETAMINOPHEN 325 MG TABLET PO PRN (17:16)
[2019-06-14] MEDS ORDERED: IV NORMAL SALINE 1,000ML 1,000 ML IV SCH (18:15)
--- NOTE | 2019-06-14 18:17 | HP ---
ADMIT DATE: 06/14/2019 HISTORY OF PRESENT ILLNESS: The patient is a 73-year-old male patient who resides at [facility], who was [facility] by EMS from [facility] with report of syncopal episode while patient was up in the shower and nursing staff was present and able to assist the patient down to the wheelchair prior to him passing out. He denied any trauma, denies any fever or chills. The patient currently reports some nausea, it was noted. The patient with significant episodes of diarrhea upon presentation to the ER. It is unclear if the patient has been having similar symptoms of nausea, vomiting, diarrhea prior to presentation. EMS reports that initially they were called to [facility] with reports that the patient is also experiencing some labored breathing. However, the patient currently denies any shortness of breath. Denied any chest pain. He was afebrile. EKG is stable. Labs obtained as COVID-19 cannot be excluded as the cause of his symptoms. He was tested for that and a CT scan of the head, cervical spine without acute process. CT angio of the chest was done and apparently was stable. Apparently, his lab work were arrived after he had CT scan of the chest with PE protocol showing that his creatinine was 3.7, BUN was 12 and therefore, the patient was admitted with acute on chronic kidney injury as his most recent creatinine on 05/12/2019 was 1.1 and his BUN was 18. Obviously he apparently was on hydrochlorothiazide and lisinopril and apparently he was also retaining urine and about 500 mL of urine were drained from his bladder upon catheterization. PAST MEDICAL HISTORY: Significant for hypertension, hyperlipidemia, generalized osteoarthritis, had also history of anxiety and depression and apparently his D-dimer was elevated last time and therefore, he had CT angio, which showed no evidence of pulmonary emboli; however, CT scan showed decreased opacification of the right common carotid artery and occlusion is not excluded and therefore, the patient was transferred at that time to [facility], was seen by the vascular surgeon. 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 PAST SURGICAL HISTORY: Significant for left total knee arthroplasty, tonsillectomy and hernia repair. ALLERGIES: He has no known drug allergies. FAMILY HISTORY: He has 3 brothers and 1 sister, all of them younger. His father is and at the age of 90 because of myocardial infarction. Mother in her 90s. SOCIAL HISTORY: He is , used to have 2 sons. He quit smoking about 12 years ago. He used to smoke half a pack a day, also used to drink alcohol heavily. He quit also that. 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 MEDICATIONS: He is currently on the following medication, atorvastatin calcium 40 mg at bedtime, metoprolol tartrate 25 mg twice a day, lisinopril 40 mg once a day, aspirin 81 mg once a day, ibuprofen 400 mg, takes half a tablet every 6 hours, acetaminophen 650 mg every 6 hours. He also has hydrochlorothiazide 12.5 mg daily, lactobacillus acidophilus 1 capsule twice a day, magnesium hydroxide for milk of magnesia 30 mL p.o. daily p.r.n. for constipation, meclizine 12.5 mg twice a day, cholecalciferol vitamin D3 400 units daily. REVIEW OF SYSTEMS: The patient complained of headache; however, he denied any other complaint. PHYSICAL EXAMINATION: GENERAL: On arrival to the Emergency Room, the patient looked well and was clearly in no apparent respiratory distress. No pallor, jaundice, cyanosis or thyromegaly. No jugular venous distention or limb edema. VITAL SIGNS: Her heart rate was 86, blood pressure was 194/52, temperature was 96.9, respiratory rate was 20, and oxygen saturation was 98% on room air. HEAD, EYES, EARS, NOSE AND THROAT: Showed normocephalic, atraumatic. NECK: Supple. HEART: Showed normal first and second heart sounds. No gallop, rub or murmur. CHEST: Clear to auscultation. No crepitation or rhonchi. ABDOMEN: Distended, soft, nontender. No guarding or rigidity. No organomegaly. All hernial orifice intact. Bowel sounds normal. NEUROLOGIC: He is somewhat confused, but without any obvious lateralizing sign. All his cranial nerves are intact. EXTREMITIES: He moves extremities without difficulty. LABORATORY DATA: On arrival to the Emergency Room, his white cell count was 12,700, hemoglobin 16, hematocrit 48, MCV 97 and platelet count 245,000. His serum sodium was 135, potassium 5.1, chloride 98, bicarbonate 21, anion gap of 16, BUN 12, creatinine was 3.7, estimated GFR was 16 mL per minute. His glucose was 144. Lactic acid was 2.7, calcium was 9.3, magnesium was 2.7. Total bilirubin, AST, ALT, alkaline phosphatase were normal. Lactate dehydrogenase was 220. Ammonia was less than 10. Total protein was 6.4, albumin was 3.5. His prothrombin time, INR and aPTT were normal. D-dimer was slightly elevated 110. Urinalysis was essentially unremarkable. Toxic screen was essentially negative. His influenza A and B as well as group A streptococcus rapid test were all negative. The CT scan of the head showed there is dense round mass in the anterior horn of the right lateral ventricle that measures about 2.8 cm in diameter and results in right sided hydrocephalus with shift of septum pellucidum from right to left by about 1.5 cm. There is moderate diffuse atrophy. There is no extraaxial fluid collection or gross bleed. There is no focal loss of ochoa white matter distinction to suggest acute ischemia and the impression is that the patient has hyper-attenuating 2.8 cm mass anteriorly on the right lateral ventricle, resulting in right sided hydrocephalus. This could be a meningioma, subependymoma or lymphoma or metastases. CT scan of the cervical spine without contrast showed that there is no loss of vertebral body stature. There is no prevertebral soft tissue swelling. The vertebral bodies are well aligned. C1-C2 relationship is normal. The visualized osseous structure appears normal. Evaluation of the central canal is limited without contrast. There are multiple posterior disk bulges resulting in flattening of the thecal sac. There does not appear to be gross flattening of the cervical cord. There is moderate narrowing of multiple neural foramina. CT angio of the chest showed that there is no evidence of pulmonary embolism, elevated left hemidiaphragm with linear airspace opacities identified in the left lung base, likely chronic infiltrate, atelectasis, similar to prior exam. The patient was admitted with acute on chronic kidney injury, probably aggravated by contrast media given for his CT angio of the chest. He also has probably obstructive uropathy as 500 mL of urine were drained from his urinary bladder. He did receive 1 liter of fluid. I will add another liter and continue with 100 mL per hour. We will repeat all his lab work again tomorrow. I will hold all his medication that might be nephrotoxic. ITA MULLINS MD DR: LYNNE/enrique JOB#: [id number] / [id number]
--- NOTE | 2019-06-14 18:29 | NUR ---
NURSING NOTE PATIENT ARRIVED VIA EMS ACCOMPANIED BY STAFF AT 1615, ASSIST X 2 REQUIRED TO TRANSFER IN A BED. PT IS A/O X 2, CONFUSED, GAMBELL, C/O HEADACHE, TYLENOL ADMINISTERED. PT HAS BROWNE INSERTED IN ED, HAD 500 ML OUTPUT PER ED STAFF, HAD 2 MS TOADY . LUNGS ARE CLEAR, 97% ON RA. NO ABD PAIN. TEST FOR COVID 19 WAS SWABBED IN ED, PENDING RESULT. CONTINUE TO MONITOR.
[2019-06-14] MEDS: LACTOBACILLUS RHAMNOSUS GG 1 CAPSULE. PO SCH (21:15)
[2019-06-14] MEDS: ATORVASTATIN CALCIUM 20 MG TABLET PO SCH (21:15)
[2019-06-14] MEDS ORDERED: NOREPINEPHRINE BITARTRATE 8 MG in IV DEXTROSE 5% 250 ML IV PRN (23:15)
--- NOTE | 2019-06-14 23:58 | NUR ---
PT noted with fluctuating MAP on assessment and reassessments. PT receiving NS at 100/hr at shift start. PT continued to show below normal parameter MAP. Bolus administered of 500 mL at 1950. Unable to place order until now (06/14 at 0000). PT MAP still not within range. MD notified. PT status changed to ICU with orders received for another bolus of 1000 mL, start of Levophed drip for pharmacy titration to MAP of 65 and fluids increased to 150/hr after bolus. Will continue to monitor.
[2019-06-15] VITALS (33 sets, daily range): BP systolic 88–150; BP diastolic 33–86
[2019-06-15] MEDS ORDERED: IV NORMAL SALINE 500ML 500 ML IV ONE (00:15)
[2019-06-15] MEDS: IV NORMAL SALINE 1,000ML 1,000 ML IV SCH ×4 (00:30→20:19)
[2019-06-15] MEDS ORDERED: IV NORMAL SALINE 1,000ML 1,000 ML IV ONE (00:30)
[2019-06-15 05:35] LABS: HEMATOCRIT 40.5 % (39.0-53.0); HEMOGLOBIN 13.4 g/dL (13.0-17.5); RED BLOOD COUNT 4.18 x10^6/uL (4.30-5.70); RED CELL DISTRIBUTION WIDTH 13.7 % (11.5-14.5); WHITE BLOOD COUNT 10.6 x10^3/uL (4.0-11.0)
[2019-06-15 05:48] LABS: ALBUMIN 2.7 g/dL (3.4-5.0); CALCIUM 8.1 mg/dL (8.5-10.1); CREATININE 2.2 mg/dL (0.7-1.3); GFR 29.4; POTASSIUM 4.5 mmol/L (3.5-5.1); TOTAL BILIRUBIN 0.4 mg/dL (0.2-1.0); TOTAL PROTEIN 5.5 g/dL (6.4-8.2)
[2019-06-15] MEDS: LACTOBACILLUS RHAMNOSUS GG 1 CAPSULE. PO SCH ×2 (08:29→20:18)
[2019-06-15] MEDS: ASPIRIN CHEWABLE 81 MG TABLET. PO SCH (08:29)
[2019-06-15] MEDS: CHOLECALCIFEROL (VITAMIN D3) 1,000 UNIT TABLET PO SCH (08:29)
[2019-06-15] MEDS: ACETAMINOPHEN 325 MG TABLET PO PRN (08:38)
--- NOTE | 2019-06-15 09:00 | NUR ---
Patient resting in bed at this time, remains on IV fluids and levophed gtt. Patient alert and oriented, states he knows that hes at [facility] and continues to state that he had a fall while in the shower at [facility]. Patient denies pain or discomfort this morning. Patient very pleasant towards staff and will attempt to titrate off levophed gtt. Patient covid negative, plan to move off COVID unit.
--- NOTE | 2019-06-15 12:46 | PN ---
DATE: SUBJECTIVE: The patient is resting, slightly propped up in bed, in no apparent respiratory distress, awake and alert. On questioning him, he denied any complaint. He apparently developed episode of hypotension last night and was started on Levophed. He received 2 liters of fluid and was started on Levophed and continuous IV fluid. PHYSICAL EXAMINATION: GENERAL: When I saw him this morning, he looked well and was clearly in no apparent respiratory distress; pale, but no jaundice, cyanosis or thyromegaly. No jugular venous distention. No lower limb edema. VITAL SIGNS: His heart rate was 83, his blood pressure was 95/57, temperature was 97.3, respiratory rate was 80, and his oxygen saturation was 96% on room air. HEAD, EYES, EARS, NOSE AND THROAT: Showed normocephalic, atraumatic. NECK: Supple. HEART: Showed normal first and second heart sounds. No gallop, rub or murmur. CHEST: Clear to auscultation. No crepitation or rhonchi. ABDOMEN: Scaphoid, soft and nontender. NEUROLOGIC: He is awake, alert, responding appropriately. All cranial nerves intact. He moves extremities without difficulty, although he is mostly bed bound. His intake over the last 24 hours and output were incompletely recorded. LABORATORY DATA: His lab work this morning showed a white cell count of 10,600, hemoglobin 13, hematocrit 40, MCV 97 and platelet count 258,000. His chemistry showed serum sodium was 137, potassium 4.5, chloride 105, bicarbonate 18, anion gap of 14, BUN of 78, creatinine was 2.2. His glucose was 96, lactic acid down to 1.8, calcium was 8.1. Total bilirubin, AST, ALT, alkaline phosphatase were normal. His total protein was 5.5, albumin 2.7. He has 3 sets of cardiac enzymes, ruled out myocardial infarction. ASSESSMENT: This is a 73-year-old male patient who was admitted with acute kidney injury, probably multifactorial including obstructive uropathy, poor intake, dehydration, compounded by the fact that he was on lisinopril and hydrochlorothiazide to make things worse. When he arrived to the Emergency Room, he was given IV contrast without based on the previous creatinine value of 1.1 while his actual creatinine was 3.7. He did receive 2000 mL of normal saline and continued 150 and surprisingly in fact his kidney function has improved. His BUN is down to 78, creatinine 2.2. His baseline creatinine is 1.1. His COVID test was negative. Influenza A and B were negative. Group A streptococcus rapid test was negative. PLAN: My plan is to obviously take him off from the suspected COVID area and continue with IV fluid and titrate Levophed if possible and repeat his labs again. ITA MULLINS MD DR: LYNNE/enrique JOB#: [id number] / [id number]
--- NOTE | 2019-06-15 15:41 | NUR ---
Patient doing well, states he feels tired but is feeling much better then when he was at [facility]. Continues to make remarks to nurse and brother about how "they dont know what there doing, and i dont get good care there" Patients vitals remain stable, remains on Levophed gtt which is being titrated down at this time. Remains on IV fluids for hydration. Patient is very sleepy throughout the day but states that he has narcolepsy and this is normal. Per family when they talked to him on the phone states, "this is the best he has sounded in over a month."
--- NOTE | 2019-06-15 17:56 | NUR ---
Patients Levophed stopped, blood pressures vitals remain stable and patient states he feels "fine".
[2019-06-15] MEDS: ATORVASTATIN CALCIUM 20 MG TABLET PO SCH (20:18)
--- NOTE | 2019-06-15 21:26 | NUR ---
Update given to HAVEN Rubi at [facility] on patient current status.
[2019-06-16] VITALS (7 sets, daily range): BP systolic 128–160; BP diastolic 62–81
[2019-06-16] MEDS: IV NORMAL SALINE 1,000ML 1,000 ML IV SCH ×2 (03:10→08:09)
[2019-06-16] MEDS: LACTOBACILLUS RHAMNOSUS GG 1 CAPSULE. PO SCH (08:08)
[2019-06-16] MEDS: ASPIRIN CHEWABLE 81 MG TABLET. PO SCH (08:08)
[2019-06-16] MEDS: CHOLECALCIFEROL (VITAMIN D3) 1,000 UNIT TABLET PO SCH (08:25)
--- NOTE | 2019-06-16 09:10 | DS ---
DATE OF DISCHARGE: 06/16/2019 ATTENDING PHYSICIAN: Dr. Alicia. FINAL DISCHARGE DIAGNOSES: 1. Syncopal episode, resolved. 2. Dehydration secondary to blood pressure meds and diuretics. 3. Acute on chronic renal failure. 4. Profound dementia. 5. Essential hypertension. 6. Probable meningioma on CT of the head. HISTORY AND PHYSICAL: This is a pleasant 73-year-old gentleman, resident of [facility], presented to the ED with an acute syncopal episode. He did not remember any event leading up to this, he was admitted for further treatment and evaluation. COVID was ruled out along with influenza A and B. Creatinine was elevated at 3.7. He was admitted for further treatment and evaluation. He has been on diuretics and lisinopril. PHYSICAL EXAMINATION: Please see the dictated. PERTINENT LABORATORY AND X-RAY STUDIES: Admission creatinine was 3.7 mg/dL, repeated the next day, it came down to 2.2 mg/dL, BUN was 78. Electrolytes within normal range. Hemoglobin is maintained at 13.4 g/dL with white count of 10,600. Influenza A and B were negative. Urine drug screen was clear. The group A strep was negative and a COVID PCR was interpreted as negative. COURSE IN THE HOSPITAL: The patient was admitted and started on IV hydration. Diet advanced. He did well. We held his lisinopril. Blood pressure was improved, by the third hospital day, he was up and ambulating. Blood pressure was up to 140 and 160, heart rate was adequate. He had adequate saturation on room air. He was back to his baseline. At this time, he is discharged back to the [facility] care facility. His medication has been simplified. He should continue his aspirin 1 daily, Lipitor 20 mg daily and metoprolol 25 mg b.i.d. For now, we held his hydrochlorothiazide, ibuprofen, lactobacillus and lisinopril along with his magnesium and meclizine doses. He remains a full code per advanced directives. His prognosis is fair. He was discharged from our hospital in stable condition with explicit instructions for followup care. TOTAL DISCHARGE TIME SPENT: 38 minutes. FRANK CONCEPCION MD DR: DARWIN/enrique JOB#: [id number] / [id number] ITA Ferguson MD
--- NOTE | 2019-06-16 13:53 | NUR ---
NURSING NOTE DISCHARGE PT DISCHARGED BACK TO [facility], REPORT CALLED, WRITTEN AND VERBAL DISCHARGE INSTRUCTIONS GIVEN TO PT. COPY OF DISCHARGE PACKET SENT TO FACILITY. NO COMPLICATIONS. PT BROTHER ROME NOTIFIED OF DISCHARGE.. NO COMPLICATIONS. HAVEN PHAN
== END 2019-06-16 13:54 | DRG 682 ==
LOC: ER 12:21 → 1 SOUTH 15:00
PROVIDERS: ADMIT Internal Medicine; ATTEND Internal Medicine
DX: N17.0 Acute kidney failure with tubular necrosis (principal); R65.11 Systemic inflammatory response syndrome (SIRS) of non-infectious origin with acute organ dysfunction; E86.0 Dehydration; E78.5 Hyperlipidemia, unspecified; F03.90 Unspecified dementia, unspecified severity, without behavioral disturbance, psychotic disturbance, mood disturbance, and anxiety; M15.9 Polyosteoarthritis, unspecified; Z96.652 Presence of left artificial knee joint; I12.9 Hypertensive chronic kidney disease with stage 1 through stage 4 chronic kidney disease, or unspecified chronic kidney disease; N18.9 Chronic kidney disease, unspecified; F32.9 Major depressive disorder, single episode, unspecified; F41.9 Anxiety disorder, unspecified; T46.5X5A Adverse effect of other antihypertensive drugs, initial encounter; T50.2X5A Adverse effect of carbonic-anhydrase inhibitors, benzothiadiazides and other diuretics, initial encounter; D32.9 Benign neoplasm of meninges, unspecified; F17.210 Nicotine dependence, cigarettes, uncomplicated; Z79.899 Other long term (current) drug therapy; Z79.82 Long term (current) use of aspirin; Z82.49 Family history of ischemic heart disease and other diseases of the circulatory system; Z98.52 Vasectomy status; Y92.89 Other specified places as the place of occurrence of the external cause; Z03.818 Encounter for observation for suspected exposure to other biological agents ruled out
CPT/HCPCS: 36415; 70450; 71275; 72125; 80053; 80307; 81001; 82140; 82553; 82728; 83605; 83615; 83735; 83880; 84484; 85025; 85027; 85379; 85610; 85730; 87040; 87070; 87635; 87804; 87880; 93005; 96361; 96374; J2405; J7040; Q9967; 99291-25; J7030

== ENCOUNTER 2019-09-21 17:05 | Emergency (ER) | payer MEDICAID, MEDICARE, OTHER ==
[~2019-09-21] VITALS: Ht 185.4 cm; Wt 70.6 kg
[~2019-09-21 17:05] MED LIST changes: +ACET325T21 PO; +ASPI81TA59 PO; +HYDR12.58 PO; +IBUP400T18 PO; +LACT1CAP6 PO; +LISI40TA PO; +MAGN400O7 PO; +MECL12.573 PO; +METO25TA4 PO
--- NOTE | 2019-09-21 17:51 | RAD ---
Exam: CT head INDICATION: Altered mental status, hypertensive TECHNIQUE: Sequential axial images through the head were obtained without the administration of IV contrast. Comparisons: 06/14/2019 FINDINGS: There is a large hemorrhage seen within predominantly the right lateral ventricle with likely intraparenchymal component in the right basal ganglia. The main component of hemorrhage measures approximately 4.5 x 5.6 cm. There is no midline shift or sulcal effacement. No acute vascular territory infarction is identified. Echavarria-white distinction is preserved. Hemorrhage is seen within the occipital horns of the ventricles bilaterally. Previously seen mass within the right frontal horn of the ventricle is obscured. The basal cisterns are well maintained. The visualized portions of the paranasal sinuses and mastoid air cells are well-pneumatized. No acute fractures. IMPRESSION: 1. Large predominantly intraventricular hemorrhage centered in the right lateral ventricle. There could possibly be extension into the right basal ganglia. 2. Previously seen mass in the right lateral ventricle is obscured by hemorrhage. Exposure: One or more of the following in the visualized dose reduction techniques were utilized for this examination: 1. Automated exposure control 2. Adjustment of the MA and/or KV according to patient size Use of iterative of reconstructive technique FOR INTERNAL CODING PURPOSES Critical result: Findings discussed with JACOB CALABRESE at 09/21/2019 5:42 PM. RESULT CODE: (C) Electronically signed by: Winifred Novoa MD (09/21/2019 5:48 PM) [id number]
[2019-09-21] MEDS ORDERED: SUCCINYLCHOLINE 200 MG/10 ML VIAL. ONE ×2 (17:53→18:00)
[2019-09-21] MEDS ORDERED: PROPOFOL 100 ML IV ONE ×2 (17:54→18:30)
[2019-09-21] MEDS ORDERED: ETOMIDATE 40 MG/20 ML VIAL. IV ONE (18:00)
[2019-09-21 18:02] LABS: BASO % 0 % (0-3); EOS % 0 % (0-3); HEMATOCRIT 40.3 % (39.0-53.0); HEMOGLOBIN 13.9 g/dL (13.0-17.5); LYMPH # 0.8 x10^3/uL (1.0-4.8); LYMPH % 6 % (24-48); MEAN CORPUSCULAR HEMOGLOBIN 33 pg (25-35); MEAN CORPUSCULAR HGB CONC 34 g/dL (31-37); MEAN CORPUSCULAR VOLUME 97 fL (79-100); MONO # 1.2 x10^3/uL (0.0-1.1); MONO % 8 % (0-9); NEUT # 12.1 x10^3uL (1.8-7.7); NEUT % 85 % (31-73); PLATELET COUNT 387 x10^3/uL (140-400); RED BLOOD COUNT 4.15 x10^6/uL (4.30-5.70); RED CELL DISTRIBUTION WIDTH 12.9 % (11.5-14.5); WHITE BLOOD COUNT 14.2 x10^3/uL (4.0-11.0)
[2019-09-21 18:20] VITALS: BP 177/92
--- NOTE | 2019-09-21 18:31 | PHYS DOC ---
Past History Past Medical History: Arthritis, Dementia, Hypertension, UTI Additional Past Medical Histor: heart murmur,narcolepsy Past Surgical History: Knee Replacement Additional Past Surgical Histo: left knee, vasectomy, hernia repair Smoking: Quit Greater Than 1 Year Alcohol Use: None Drug Use: None Adult General Chief Complaint Chief Complaint: ALTERED MENTAL STATUS HPI HPI Patient is a 73-year-old male who presents via EMS from assisted for altered mental status. Last known normal was 1 hour ago. Patient's baseline function is able to ambulate, perform activities of daily living, and eats a mechanical soft diet due to lack of teeth. Nonetheless, assisted staff found patient unresponsive and lethargic prompting them to call EMS for emergent transport to our facility. On arrival, patient's GCS was 9. Little is known about patient's past medical history except he has history of renal failure, appears to take 81 mg aspirin per chart review for likely cardiac reasons, and history of potential meningioma mass seen on previous CT May 2019. It is not known whether patient suffered a trauma or fall prior to arrival. Patient is a full code Review of Systems Review of Systems ROS unobtainable due to patient's condition Current Medications Current Medications Current Medications Medications (Trade) Dose Ordered Sig/Nina Start Time Stop Time Status Last Admin Dose Admin Nicardipine HCl 50 mg/Sodium Chloride 270 ml @ 27 mls/hr CONT PRN 09/21/19 18:00 Propofol 100 ml @ As Directed STK-MED ONCE 09/21/19 17:54 09/21/19 17:54 DC Succinylcholine Chloride (Anectine) 200 mg STK-MED ONCE 09/21/19 17:53 09/21/19 17:53 DC Allergies Allergies Allergies Coded Allergies Type Severity Reaction Last Updated Verified No Known Drug Allergies 05/10/19 No Physical Exam Physical Exam Constitutional: Pt is alert but not oriented. Pt appears thin, malnourished, and lethargic making purposeless movements. HENT: Head: Normocephalic and atraumatic. Mouth/Throat: Oropharynx is clear and dry No hematomas or lacerations or abrasions to face or scalp OP clear, no blood, no malocclusion, no teeth, gums appear healthy Nares clear, no nasal septal hematoma TMs clear, no hemotympanum, no joaquin sign bilaterally Midface stable Eyes: Conjunctivae and EOM are normal. Pupils are equal, round, and reactive to light. Neck: C-spine midline without step-offs Cardiovascular: Tachycardic rate, appears sinus on auscultation and normal heart sounds. Pulmonary/Chest: Effort normal and breath sounds normal. No respiratory distress. He has no wheezes. CTA bilaterally. Protecting airway at present with saturations greater than 90% on room air Abdominal: Soft. Bowel sounds are normal. Pt exhibits no distension. There is no tenderness. Musculoskeletal: No bony tenderness to extremities, no deformities, full ROM extremities Chest wall stable Pelvis stable and non-tender No vertebral and spine without stepoffs Neurological: Pt is alert only making purposeless movements, responds to pain, GCS of 9, eyes respond to pain, localizes to pain, and no response to verbal commands Moving all extremities spontaneously but no purposeful movement appreciated Skin: Skin is warm and dry. No abrasions, no lacerations Nursing note and vitals reviewed. Current Patient Data Vital Signs Vital Signs Date Time Temp Pulse Resp B/P (MAP) Pulse Ox O2 Delivery O2 Flow Rate FiO2 09/21/19 17:55 128 14 205/118 (147) 97 Room Air 09/21/19 17:24 98.4 Lab Results Laboratory Tests Test 09/21/19 17:40 White Blood Count 14.2 x10^3/uL (4.0-11.0) H Red Blood Count 4.15 x10^6/uL (4.30-5.70) L Hemoglobin 13.9 g/dL (13.0-17.5) Hematocrit 40.3 % (39.0-53.0) Mean Corpuscular Volume 97 fL (79-100) Mean Corpuscular Hemoglobin 33 pg (25-35) Mean Corpuscular Hemoglobin Concent 34 g/dL (31-37) Red Cell Distribution Width 12.9 % (11.5-14.5) Platelet Count 387 x10^3/uL (140-400) Neutrophils (%) (Auto) 85 % (31-73) H Lymphocytes (%) (Auto) 6 % (24-48) L Monocytes (%) (Auto) 8 % (0-9) Eosinophils (%) (Auto) 0 % (0-3) Basophils (%) (Auto) 0 % (0-3) Neutrophils # (Auto) 12.1 x10^3uL (1.8-7.7) H Lymphocytes # (Auto) 0.8 x10^3/uL (1.0-4.8) L Monocytes # (Auto) 1.2 x10^3/uL (0.0-1.1) H Eosinophils # (Auto) 0.0 x10^3/uL (0.0-0.7) Basophils # (Auto) 0.0 x10^3/uL (0.0-0.2) Platelet Estimate Pending Lactic Acid Level 1.6 mmol/L (0.4-2.0) Ammonia < 10 mcmol/L (11-34) L Troponin I Quantitative 0.017 ng/mL (0-0.055) EKG EKG [] Radiology/Procedures Radiology/Procedures PROCEDURE: CT CODE STROKE HEAD WO Exam: CT head INDICATION: Altered mental status, hypertensive TECHNIQUE: Sequential axial images through the head were obtained without the administration of IV contrast. Comparisons: 06/14/2019 FINDINGS: There is a large hemorrhage seen within predominantly the right lateral ventricle with likely intraparenchymal component in the right basal ganglia. The main component of hemorrhage measures approximately 4.5 x 5.6 cm. There is no midline shift or sulcal effacement. No acute vascular territory infarction is identified. Echavarria-white distinction is preserved. Hemorrhage is seen within the occipital horns of the ventricles bilaterally. Previously seen mass within the right frontal horn of the ventricle is obscured. The basal cisterns are well maintained. The visualized portions of the paranasal sinuses and mastoid air cells are well-pneumatized. No acute fractures. IMPRESSION: 1. Large predominantly intraventricular hemorrhage centered in the right lateral ventricle. There could possibly be extension into the right basal ganglia. 2. Previously seen mass in the right lateral ventricle is obscured by hemorrhage. Exposure: One or more of the following in the visualized dose reduction techniques were utilized for this examination: 1. Automated exposure control 2. Adjustment of the MA and/or KV according to patient size Use of iterative of reconstructive technique FOR INTERNAL CODING PURPOSES Critical result: Findings discussed with JACOB CALABRESE at 09/21/2019 5:42 PM. RESULT CODE: (C) Electronically signed by: Winifred Novoa MD (09/21/2019 5:48 PM) [id number] Course & Med Decision Making Course & Med Decision Making Patient seen on immediate ED arrival by myself, patient hooked up to monitors and IV access was obtained Airway patent and protected on arrival, breathing unlabored but appears uncomfortable, patient's vitals showed marked hypertension and tachycardia and criyn-wi-ivby glucose was 153 on arrival Patient's airway stable so decision was made to transport emergently to CT. Initial imaging concerning for potential intraventricular bleed so [facility] was called and presumptive transport via air arranged Patient reemerged from CT, decision was made due to worsening respiratory function and mental status to intubate patient. Propofol drip and subsequent nicardipine drip initiated Baseline laboratory work obtained. C-collar in place given unknown history of trauma/mechanism of bleed, C-spine has not been cleared Throughout this, case was discussed with [facility]. I expressed concern for patient's condition given high likelihood of intraventricular bleed from left basal ganglion area secondary to hypertension order bleeding from prior presumed meningioma mass Patient was ultimately accepted under the care of Dr. Fleming, at [facility] and will be transported emergently for further medical and surgical management. Dragon Disclaimer Dragon Disclaimer This electronic medical record was generated, in whole or in part, using a voice recognition dictation system. Intubation Procedure Intub Indication: Unable to protect airway Consent: Implied, emergent, medical necessity. Medications Used: 20 mg etomidate, 100 mg succinylcholine Procedure: The patient was placed in the supine position. Cricoid pressure was not applied. Intubation was performed by myself using a MAC 3 blade with 8.0 ET tube. I personally used the blade to visualize the cords, I successfully visualize the tube passing through the vocal cords without issues on first attempt. ET tube was secured at 24 at the lips, placement confirmed by auscultation, positive CO2 change, O2 saturations greater than 95%, and subsequent chest x-ray. The patient tolerated the procedure well without any reportable complications. Complications: None Departure Departure: Impression: Primary Impression: Intraventricular hemorrhage Disposition: 05 TRANSFER OTHER ([facility] for emergent neuro ICU management and neurosurgical evaluation) Condition: CRITICAL Referrals: HUBER VELARDE DO (PCP) Justification of Admission: Justification of Admission: Justification of Admission Dx: Yes Altered Mental Status: Altered Mental Status JACOB CALABRESE DO Sep 21, 2019 18:31
--- NOTE | 2019-09-21 18:37 | RAD ---
Single view chest dated 09/21/2019. Comparison made to 06/14/2019. CLINICAL INDICATION: ET tube placement. FINDINGS: Single upright portable exam performed. Interval placement of endotracheal tube with tip approximately 4.3 cm above the level of kwadwo. Heart and mediastinal contours are stable. There is patchy increased density in the right suprahilar region and left infrahilar region. No pleural effusion. No pneumothorax IMPRESSION: 1. Endotracheal tube tip at mid trachea. 2. Patchy perihilar opacity, atelectasis versus pneumonia. Electronically signed by: Toro Sage MD (09/21/2019 6:34 PM) MONICA
[2019-09-21 18:42] LABS: BGAS PH 7.44 (7.35-7.46)
--- NOTE | 2019-09-21 18:49 | EKG ---
[address] [address] Test Date: 2019-09-21 Test Time: 17:13:53 Pat Name: VERA DAVIS Department: Room: Gender: M Annual [employer]: ADAM : 1945 Requested By: JACOB CALABRESE Order Number: [id number] Reading MD: Measurements Intervals [place] Rate: 103 P: 55 NV: 160 QRS: -42 QRSD: 84 T: 44 QT: 366 QTc: 482 Interpretive Statements SINUS TACHYCARDIA ATRIAL PREMATURE COMPLEX(ES) LEFT ATRIAL ABNORMALITY ABNORMAL LEFT AXIS DEVIATION LEFT ANTERIOR FASCICULAR BLOCK QRS(T) CONTOUR ABNORMALITY CONSIDER ANTEROLATERAL MYOCARDIAL DAMAGE ABNORMAL ECG RI6.02 No previous ECG available for comparison
[2019-09-21 19:10] LABS: CALCIUM 8.7 mg/dL (8.5-10.1); CREATININE 0.9 mg/dL (0.7-1.3); GFR 82.5; POTASSIUM 3.8 mmol/L (3.5-5.1)
[2019-09-21 19:16] LABS: ALBUMIN 3.4 g/dL (3.4-5.0); TOTAL BILIRUBIN 0.8 mg/dL (0.2-1.0); TOTAL PROTEIN 6.9 g/dL (6.4-8.2)
[2019-09-21 21:48] LABS: % BANDS 1 % (0-9); % BASOS 1 % (0-3); % LYMPHS 5 % (24-48); % MONOS 3 % (0-10); % SEGS 90 % (35-66); PLT ESTIMATE ADEQUATE (ADEQUATE)
== END 2019-09-21 18:55 | disposition short-term general hospital (02) ==
LOC: ER 17:05
DX: I61.5 Nontraumatic intracerebral hemorrhage, intraventricular (principal); R41.82 Altered mental status, unspecified; R53.83 Other fatigue; M19.90 Unspecified osteoarthritis, unspecified site; I10 Essential (primary) hypertension; Z87.440 Personal history of urinary (tract) infections; F03.90 Unspecified dementia, unspecified severity, without behavioral disturbance, psychotic disturbance, mood disturbance, and anxiety; Z87.891 Personal history of nicotine dependence
CPT/HCPCS: 31500; 36415; 51702; 70450; 71045; 80053; 82140; 82803; 83605; 83735; 83880; 84484; 85007; 85025; 85610; 85730; 87040; 93005; 96365; 99285; J0330; J7050